=== PATIENT | female | born 1970 | race Hispanic/Latino ===

== ENCOUNTER 2017-11-17 18:10 | Emergency (ER) | payer SELFPAY ==
[~2017-11-17 18:10] MED LIST: ACET1TAB12 PO; ASPI81TA40 PO; FERR1TAB66 PO; TRAM50TA4 PO
[2017-11-17] MEDS ORDERED: MORPHINE SULFATE 4 MG/1ML SYG ONE (18:33)
[2017-11-17 18:37] LABS: BASOPHILS % (AUTO) 0.8 % (0.0-5.0); EOSINOPHILS % (AUTO) 3.3 % (0.0-8.0); HEMATOCRIT 36.8 % (36-48); LYMPHOCYTES % (AUTO) 17.9 % (21.0-51.0); MEAN CORPUSCULAR HGB CONC 33.4 g/dL (32.0-36.0); MEAN CORPUSCULAR VOLUME 86.7 fL (79-99); MONOCYTES % (AUTO) 6.6 % (3.0-13.0); NEUTROPHILS % (AUTO) 71.4 % (40.0-77.0); PLATELET COUNT (AUTO) 328 K/uL (130-400); RED BLOOD CELL COUNT(AUTO) 4.25 MIL/uL (4.00-5.50); RED CELL DISTRIBUTION WIDTH 13.4 % (11.0-15.5); WHITE BLOOD COUNT (AUTO) 9.6 K/uL (4.8-10.8)
[2017-11-17 18:47] LABS: CREATININE 0.7 mg/dL (0.5-1.5); POTASSIUM 3.7 mmol/L (3.5-5.1)
[2017-11-17 18:52] LABS: ALBUMIN 3.8 g/dL (3.5-5.0); BILIRUBIN,TOTAL 0.4 mg/dL (0.2-1.0); TOTAL PROTEIN, SERUM 8.3 g/dL (6.0-8.3)
[2017-11-17] MEDS ORDERED: IOPAMIDOL-370 75 ML VIAL IV ONE (20:05)
[2017-11-17] MEDS ORDERED: ONDANSETRON HCL MDV 20ML 2 MG/ML VIAL ONE ×2 (20:24)
[2017-11-17 20:42] LABS: APPEARANCE,URINE Cloudy (CLEAR); BILIRUBIN,URINE Negative (NEGATIVE); COLOR,URINE Yellow (YELLOW); GLUCOSE, URINE (UA) Negative (NEGATIVE); KETONES,URINE Negative (NEGATIVE); LEUKOCYTE ESTERASE ,URINE Trace (NEGATIVE); NITRATE,URINE Negative (NEGATIVE); OCCULT BLOOD,URINE Negative (NEGATIVE); PROTEIN,URINE Negative (NEGATIVE)
[2017-11-17 20:58] LABS: BACTERIA,URINE Rare /HPF (None Seen); MUCUS,URINE Few LPF (None Seen); RBC,URINE None Seen /HPF (0-1); WBC,URINE 0-1 /HPF (0-1)
== END 2017-11-17 21:45 | disposition home or self-care (01) ==
LOC: EDH 18:10
DX: R10.11 Right upper quadrant pain (principal); R16.0 Hepatomegaly, not elsewhere classified; Z98.890 Other specified postprocedural states; Z87.891 Personal history of nicotine dependence
CPT/HCPCS: 36415; 74177; 80053; 81001; 83690; 85025; 96374; 96375; 99285; J2270; Q9967

== ENCOUNTER 2017-12-16 22:12 | Inpatient (IN) | payer OTHER ==
[~2017-12-16] VITALS: Ht 157.5 cm; Wt 87.4 kg
[2017-12-16] MEDS ORDERED: ONDANSETRON HCL 4 MG/2 ML VIAL ONE (22:35)
[2017-12-16] MEDS ORDERED: SODIUM CHLORIDE 0.9% 1000ML 1,000 ML IV ONE (22:35)
[2017-12-16] MEDS ORDERED: KETOROLAC TROMETHAMINE 30MG/ML ONE (22:36)
[2017-12-16] MEDS ORDERED: HALOPERIDOL LACTATE 5 MG/ML VIAL ONE (22:53)
[2017-12-16 22:59] LABS: BASOPHILS % (AUTO) 0.6 % (0.0-5.0); EOSINOPHILS % (AUTO) 3.7 % (0.0-8.0); HEMATOCRIT 36.9 % (36-48); LYMPHOCYTES % (AUTO) 13.7 % (21.0-51.0); MEAN CORPUSCULAR HEMOGLOBIN 28.8 pg (27.0-33.0); MEAN CORPUSCULAR HGB CONC 34.1 g/dL (32.0-36.0); MEAN CORPUSCULAR VOLUME 84.4 fL (79-99); PLATELET COUNT (AUTO) 374 K/uL (130-400); RED BLOOD CELL COUNT(AUTO) 4.37 MIL/uL (4.00-5.50); RED CELL DISTRIBUTION WIDTH 13.7 % (11.0-15.5); WHITE BLOOD COUNT (AUTO) 8.7 K/uL (4.8-10.8)
[2017-12-16 23:06] LABS: APPEARANCE,URINE Cloudy (CLEAR); BILIRUBIN,URINE Negative (NEGATIVE); COLOR,URINE Yellow (YELLOW); GLUCOSE, URINE (UA) Negative (NEGATIVE); KETONES,URINE Trace mg/dL (NEGATIVE); LEUKOCYTE ESTERASE ,URINE Small (NEGATIVE); NITRATE,URINE Negative (NEGATIVE); OCCULT BLOOD,URINE Negative (NEGATIVE); PH,URINE 7.5 (5.0-8.0); PROTEIN,URINE Negative (NEGATIVE)
[2017-12-16 23:09] LABS: CREATININE 0.6 mg/dL (0.5-1.5); POTASSIUM 3.5 mmol/L (3.5-5.1)
[2017-12-16 23:12] LABS: RBC,URINE None Seen /HPF (0-1)
[2017-12-16 23:13] LABS: ALBUMIN 3.3 g/dL (3.5-5.0); BILIRUBIN,DIRECT 0.1 mg/dL (0.0-0.3); BILIRUBIN,TOTAL 0.3 mg/dL (0.2-1.0); TOTAL PROTEIN, SERUM 7.4 g/dL (6.0-8.3)
[2017-12-16 23:13] LABS: BACTERIA,URINE Few /HPF (None Seen); MUCUS,URINE Few LPF (None Seen); SQUAMOUS EPITHELIAL CELL,UR Few /HPF (0-2)
[2017-12-17 02:49] VITALS: BP 121/76
[2017-12-17] MEDS: SODIUM CHLORIDE 0.9% 1000ML 1,000 ML IV SCH ×3 (03:00→23:30)
[2017-12-17] MEDS ORDERED: ACETAMINOPHEN 325 MG TAB PO PRN (03:00)
[2017-12-17] MEDS ORDERED: ONDANSETRON HCL MDV 20ML 2 MG/ML VIAL IVP PRN (03:00)
[2017-12-17] MEDS: LEVOFLOXACIN 500 MG/D5W 100 ML 100 ML IV SCH (03:59)
[2017-12-17] MEDS ORDERED: MORPHINE SULFATE 2 MG/ML 1ML SYG IVP PRN (04:00)
[2017-12-17] MEDS: MORPHINE SULFATE 4 MG/1ML SYG IVP PRN ×5 (04:00→22:26)
[2017-12-17 05:40] LABS: HEMATOCRIT 33.8 % (36-48); MEAN CORPUSCULAR HEMOGLOBIN 28.7 pg (27.0-33.0); MEAN CORPUSCULAR HGB CONC 33.8 g/dL (32.0-36.0); MEAN CORPUSCULAR VOLUME 84.8 fL (79-99); PLATELET COUNT (AUTO) 314 K/uL (130-400); RED BLOOD CELL COUNT(AUTO) 3.98 MIL/uL (4.00-5.50); RED CELL DISTRIBUTION WIDTH 13.8 % (11.0-15.5); WHITE BLOOD COUNT (AUTO) 6.8 K/uL (4.8-10.8)
[2017-12-17 05:59] LABS: ALBUMIN 3.3 g/dL (3.5-5.0); BILIRUBIN,TOTAL 0.3 mg/dL (0.2-1.0); CREATININE 0.6 mg/dL (0.5-1.5); POTASSIUM 4.3 mmol/L (3.5-5.1); TOTAL PROTEIN, SERUM 7.6 g/dL (6.0-8.3)
[2017-12-17 07:40] VITALS: BP 127/73
[2017-12-17] MEDS ORDERED: PANTOPRAZOLE SODIUM 40 MG TABLET.DR PO SCH (09:00)
[2017-12-17] MEDS: FAMOTIDINE/PF 20 MG/2 ML VIAL IV SCH ×2 (10:11→20:40)
[2017-12-17] MEDS: ENOXAPARIN SODIUM 40 MG/0.4 ML SYRINGE SQ SCH (10:12)
[2017-12-17] MEDS ORDERED: MORPHINE SULFATE 4 MG/1ML SYG ONE (10:52)
[2017-12-17] MEDS ORDERED: MORPHINE SULFATE 2 MG/ML 1ML SYG IVP SCH (11:00)
[2017-12-17 11:33] VITALS: BP 125/76
[2017-12-17] MEDS ORDERED: ONDANSETRON HCL 4 MG/2 ML VIAL ONE (13:58)
[2017-12-17 16:00] VITALS: BP 116/61
[2017-12-17] MEDS: INSULIN HUMULIN R 100 UNIT/ML 3ML SQ SCH ×2 (16:30→21:00)
[2017-12-17 19:36] VITALS: BP 120/76
[2017-12-17 23:31] VITALS: BP 115/70
[2017-12-18] MEDS: LEVOFLOXACIN 500 MG/D5W 100 ML 100 ML IV SCH (02:37)
[2017-12-18 03:41] VITALS: BP 110/70
[2017-12-18] MEDS: MORPHINE SULFATE 4 MG/1ML SYG IVP PRN ×3 (04:23→23:31)
[2017-12-18 05:52] LABS: BASOPHILS % (AUTO) 0.6 % (0.0-5.0); EOSINOPHILS % (AUTO) 4.1 % (0.0-8.0); HEMATOCRIT 31.1 % (36-48); LYMPHOCYTES % (AUTO) 19.6 % (21.0-51.0); MEAN CORPUSCULAR HEMOGLOBIN 28.9 pg (27.0-33.0); MEAN CORPUSCULAR HGB CONC 33.9 g/dL (32.0-36.0); MEAN CORPUSCULAR VOLUME 85.4 fL (79-99); MONOCYTES % (AUTO) 8.4 % (3.0-13.0); NEUTROPHILS % (AUTO) 67.3 % (40.0-77.0); PLATELET COUNT (AUTO) 289 K/uL (130-400); RED BLOOD CELL COUNT(AUTO) 3.64 MIL/uL (4.00-5.50); RED CELL DISTRIBUTION WIDTH 13.6 % (11.0-15.5)
[2017-12-18] MEDS: INSULIN HUMULIN R 100 UNIT/ML 3ML SQ SCH ×2 (06:06→13:51)
[2017-12-18 06:07] LABS: CREATININE 0.6 mg/dL (0.5-1.5)
[2017-12-18 06:22] LABS: HEMOGLOBIN A1C 5.8 % (4.0-6.0)
[2017-12-18 07:55] VITALS: BP 119/70
[2017-12-18] MEDS: ENOXAPARIN SODIUM 40 MG/0.4 ML SYRINGE SQ SCH (08:15)
[2017-12-18] MEDS: FAMOTIDINE/PF 20 MG/2 ML VIAL IV SCH ×2 (08:15→21:11)
[2017-12-18] MEDS: SODIUM CHLORIDE 0.9% 1000ML 1,000 ML IV SCH ×2 (08:16→11:48)
[2017-12-18 12:28] VITALS: BP 124/83
[2017-12-18 16:00] VITALS: BP 128/70
[2017-12-18 20:43] VITALS: BP 143/65
[2017-12-19] VITALS: BP 123/76
[2017-12-19] MEDS ORDERED: GLUCAGON 1MG KIT 1 MG ML IM PRN (00:15)
[2017-12-19] MEDS: DEXTROSE 50%-WATER 50 ML DISP.SYRIN IV PRN ×3 (00:23→16:54)
[2017-12-19 04:00] VITALS: BP 121/75
[2017-12-19] MEDS: LEVOFLOXACIN 500 MG/D5W 100 ML 100 ML IV SCH (05:11)
[2017-12-19] MEDS: SODIUM CHLORIDE 0.9% 1000ML 1,000 ML IV SCH ×2 (05:12→14:36)
[2017-12-19] MEDS: INSULIN HUMULIN R 100 UNIT/ML 3ML SQ SCH ×4 (06:00→16:39)
[2017-12-19 06:14] LABS: BASOPHILS % (AUTO) 0.7 % (0.0-5.0); EOSINOPHILS % (AUTO) 6.2 % (0.0-8.0); LYMPHOCYTES % (AUTO) 22.7 % (21.0-51.0); MEAN CORPUSCULAR HGB CONC 35.8 g/dL (32.0-36.0); MEAN CORPUSCULAR VOLUME 83.9 fL (79-99); MONOCYTES % (AUTO) 8.7 % (3.0-13.0); NEUTROPHILS % (AUTO) 61.7 % (40.0-77.0); NUCLEATED RED BLOOD CELLS 0.1 % (0.0-0.19); PLATELET COUNT (AUTO) 286 K/uL (130-400); RED BLOOD CELL COUNT(AUTO) 3.58 MIL/uL (4.00-5.50); RED CELL DISTRIBUTION WIDTH 13.4 % (11.0-15.5); WHITE BLOOD COUNT (AUTO) 5.1 K/uL (4.8-10.8)
[2017-12-19 06:20] LABS: CREATININE 0.5 mg/dL (0.5-1.5); MAGNESIUM 1.9 mg/dL (1.80-2.40); POTASSIUM 3.8 mmol/L (3.5-5.1)
[2017-12-19] MEDS: ENOXAPARIN SODIUM 40 MG/0.4 ML SYRINGE SQ SCH (08:06)
[2017-12-19] MEDS: FAMOTIDINE/PF 20 MG/2 ML VIAL IV SCH ×2 (08:06→20:32)
[2017-12-19 08:21] VITALS: BP 129/76
[2017-12-19 12:00] VITALS: BP 146/83
[2017-12-19 16:00] VITALS: BP 126/73
[2017-12-19 19:00] VITALS: BP 132/91
[2017-12-19] MEDS: MORPHINE SULFATE 4 MG/1ML SYG IVP PRN (22:41)
[2017-12-20] VITALS (7 sets, daily range): BP systolic 107–155; BP diastolic 67–81
[2017-12-20] MEDS: LEVOFLOXACIN 500 MG/D5W 100 ML 100 ML IV SCH (03:33)
[2017-12-20] MEDS: SODIUM CHLORIDE 0.9% 1000ML 1,000 ML IV SCH ×3 (03:34→20:34)
[2017-12-20 05:30] LABS: BASOPHILS % (AUTO) 0.8 % (0.0-5.0); EOSINOPHILS % (AUTO) 6.1 % (0.0-8.0); HEMATOCRIT 34.9 % (36-48); LYMPHOCYTES % (AUTO) 24.6 % (21.0-51.0); MEAN CORPUSCULAR HEMOGLOBIN 28.5 pg (27.0-33.0); MEAN CORPUSCULAR HGB CONC 33.7 g/dL (32.0-36.0); MEAN CORPUSCULAR VOLUME 84.7 fL (79-99); MONOCYTES % (AUTO) 9.3 % (3.0-13.0); NEUTROPHILS % (AUTO) 59.2 % (40.0-77.0); PLATELET COUNT (AUTO) 345 K/uL (130-400); RED BLOOD CELL COUNT(AUTO) 4.12 MIL/uL (4.00-5.50); RED CELL DISTRIBUTION WIDTH 13.9 % (11.0-15.5); WHITE BLOOD COUNT (AUTO) 5.8 K/uL (4.8-10.8)
[2017-12-20 05:38] LABS: CREATININE 0.6 mg/dL (0.5-1.5); POTASSIUM 3.9 mmol/L (3.5-5.1)
[2017-12-20] MEDS: INSULIN HUMULIN R 100 UNIT/ML 3ML SQ SCH ×5 (05:50→23:49)
[2017-12-20] MEDS: FAMOTIDINE/PF 20 MG/2 ML VIAL IV SCH ×2 (09:06→20:34)
[2017-12-20] MEDS: ENOXAPARIN SODIUM 40 MG/0.4 ML SYRINGE SQ SCH (09:06)
[2017-12-21] MEDS: MORPHINE SULFATE 4 MG/1ML SYG IVP PRN (00:27)
[2017-12-21] MEDS: LEVOFLOXACIN 500 MG/D5W 100 ML 100 ML IV SCH (02:37)
[2017-12-21 04:00] VITALS: BP 138/67
[2017-12-21 05:16] LABS: BASOPHILS % (AUTO) 0.7 % (0.0-5.0); EOSINOPHILS % (AUTO) 7.7 % (0.0-8.0); HEMATOCRIT 31.8 % (36-48); LYMPHOCYTES % (AUTO) 29.1 % (21.0-51.0); MEAN CORPUSCULAR HEMOGLOBIN 29.8 pg (27.0-33.0); MEAN CORPUSCULAR HGB CONC 35.5 g/dL (32.0-36.0); MEAN CORPUSCULAR VOLUME 83.9 fL (79-99); MONOCYTES % (AUTO) 9.3 % (3.0-13.0); NEUTROPHILS % (AUTO) 53.2 % (40.0-77.0); PLATELET COUNT (AUTO) 287 K/uL (130-400); RED BLOOD CELL COUNT(AUTO) 3.79 MIL/uL (4.00-5.50); RED CELL DISTRIBUTION WIDTH 13.4 % (11.0-15.5); WHITE BLOOD COUNT (AUTO) 4.9 K/uL (4.8-10.8)
[2017-12-21 05:42] LABS: CREATININE 0.5 mg/dL (0.5-1.5); POTASSIUM 3.4 mmol/L (3.5-5.1)
[2017-12-21] MEDS: INSULIN HUMULIN R 100 UNIT/ML 3ML SQ SCH ×2 (06:00→12:00)
[2017-12-21] MEDS: SODIUM CHLORIDE 0.9% 1000ML 1,000 ML IV SCH (07:00)
[2017-12-21 08:00] VITALS: BP 97/65
[2017-12-21] MEDS: FAMOTIDINE/PF 20 MG/2 ML VIAL IV SCH (09:59)
[2017-12-21] MEDS: ENOXAPARIN SODIUM 40 MG/0.4 ML SYRINGE SQ SCH (10:00)
[2017-12-21 11:00] VITALS: BP 119/71
[2017-12-21 16:00] VITALS: BP 114/72
== END 2017-12-21 17:00 | disposition home or self-care (01) | DRG 389 ==
LOC: EDH 22:12 → EDHIP 22:13 → UNDOADMIN 12-17 01:30 → EDHIP 12-17 01:30 → 3CH 12-17 02:24 → EDHIP 12-17 02:24
PROVIDERS: ADMIT Family Medicine; ATTEND Family Medicine
PROC: 0D9670Z Drainage of Stomach with Drainage Device, Via Natural or Artificial Opening (ICD-10-PCS; principal; 2017-12-16)
DX: K56.609 Unspecified intestinal obstruction, unspecified as to partial versus complete obstruction (principal); N39.0 Urinary tract infection, site not specified; E66.9 Obesity, unspecified; D64.9 Anemia, unspecified; K43.5 Parastomal hernia without obstruction or gangrene; Z85.038 Personal history of other malignant neoplasm of large intestine; Z93.3 Colostomy status; Z92.21 Personal history of antineoplastic chemotherapy; Z90.710 Acquired absence of both cervix and uterus; Z90.49 Acquired absence of other specified parts of digestive tract; Z68.35 Body mass index [BMI] 35.0-35.9, adult
CPT/HCPCS: 36415; 74021; 74176; 80048; 80053; 80076; 81001; 82948; 83036; 83690; 83735; 84703; 85025; 85027; C9113; J1630; J1650; J1885; J1956; J2270; J2405; J3490; J7030; J7070

== ENCOUNTER 2018-04-06 16:17 | Emergency (ER) | payer OTHER ==
[2018-04-06] MEDS ORDERED: SODIUM CHLORIDE 0.9% 1000ML 1,000 ML IV ONE ×2 (17:05→18:31)
[2018-04-06 17:07] LABS: BASOPHILS % (AUTO) 0.8 % (0.0-5.0); EOSINOPHILS % (AUTO) 2.8 % (0.0-8.0); HEMATOCRIT 33.7 % (36-48); LYMPHOCYTES % (AUTO) 22.4 % (21.0-51.0); MEAN CORPUSCULAR HEMOGLOBIN 26.2 pg (27.0-33.0); MEAN CORPUSCULAR VOLUME 79.3 fL (79-99); MONOCYTES % (AUTO) 7.7 % (3.0-13.0); NEUTROPHILS % (AUTO) 66.3 % (40.0-77.0); PLATELET COUNT (AUTO) 352 K/uL (130-400); RED BLOOD CELL COUNT(AUTO) 4.24 MIL/uL (4.00-5.50); RED CELL DISTRIBUTION WIDTH 16.2 % (11.0-15.5); WHITE BLOOD COUNT (AUTO) 5.6 K/uL (4.8-10.8)
[2018-04-06 17:20] LABS: CREATININE 0.5 mg/dL (0.5-1.5); POTASSIUM 3.5 mmol/L (3.5-5.1)
[2018-04-06 17:23] LABS: INR 0.98 (0.85-1.15); PARTIAL THROMBOPLASTIN TIME 31.3 SEC (26.3-35.5); PROTHROMBIN TIME 10.3 SEC (9.6-11.6)
[2018-04-06 17:24] LABS: ALBUMIN 3.4 g/dL (3.5-5.0); BILIRUBIN,TOTAL 0.6 mg/dL (0.2-1.0); TOTAL PROTEIN, SERUM 8.1 g/dL (6.0-8.3)
[2018-04-06 18:10] LABS: APPEARANCE,URINE SLIGHTLY CLOUDY (CLEAR); BILIRUBIN,URINE Negative (NEGATIVE); COLOR,URINE Yellow (YELLOW); GLUCOSE, URINE (UA) Negative (NEGATIVE); KETONES,URINE 40 mg/dL (NEGATIVE); LEUKOCYTE ESTERASE ,URINE Trace (NEGATIVE); NITRATE,URINE Negative (NEGATIVE); OCCULT BLOOD,URINE Negative (NEGATIVE); PH,URINE 5.5 (5.0-8.0); PROTEIN,URINE Negative (NEGATIVE); UROBILINOGEN,URINE 0.2 mg/dL (0.2-1.0)
[2018-04-06 18:18] LABS: BACTERIA,URINE Rare /HPF (None Seen); RBC,URINE 0-1 /HPF (0-1); SQUAMOUS EPITHELIAL CELL,UR Rare /HPF (0-2)
[2018-04-06] MEDS ORDERED: KETOROLAC TROMETHAMINE 30MG/ML ONE (18:32)
== END 2018-04-06 19:51 | disposition home or self-care (01) ==
LOC: EDH 16:17
DX: C18.9 Malignant neoplasm of colon, unspecified (principal); C78.7 Secondary malignant neoplasm of liver and intrahepatic bile duct; R10.13 Epigastric pain
CPT/HCPCS: 36415; 74021; 80053; 81001; 83690; 85025; 85610; 85730; 96374; 96375; 99285; J1885; J7030 ×2

== ENCOUNTER 2018-06-17 06:09 | Emergency (ER) | payer OTHER ==
[2018-06-17 06:48] LABS: APPEARANCE,URINE Clear (CLEAR); BILIRUBIN,URINE Negative (NEGATIVE); COLOR,URINE Yellow (YELLOW); GLUCOSE, URINE (UA) Negative (NEGATIVE); KETONES,URINE Negative (NEGATIVE); LEUKOCYTE ESTERASE ,URINE Trace (NEGATIVE); NITRATE,URINE Negative (NEGATIVE); OCCULT BLOOD,URINE Negative (NEGATIVE); PH,URINE 6.5 (5.0-8.0); PROTEIN,URINE Negative (NEGATIVE)
[2018-06-17 06:48] LABS: BASOPHILS % (AUTO) 0.4 % (0.0-5.0); EOSINOPHILS % (AUTO) 1.1 % (0.0-8.0); LYMPHOCYTES % (AUTO) 7.1 % (21.0-51.0); MEAN CORPUSCULAR HEMOGLOBIN 24.2 pg (27.0-33.0); MEAN CORPUSCULAR HGB CONC 30.8 g/dL (32.0-36.0); MEAN CORPUSCULAR VOLUME 78.7 fL (79-99); MONOCYTES % (AUTO) 4.2 % (3.0-13.0); NEUTROPHILS % (AUTO) 87.2 % (40.0-77.0); PLATELET COUNT (AUTO) 414 K/uL (130-400); RED BLOOD CELL COUNT(AUTO) 3.43 MIL/uL (4.00-5.50); RED CELL DISTRIBUTION WIDTH 22.3 % (11.0-15.5); WHITE BLOOD COUNT (AUTO) 5.8 K/uL (4.8-10.8)
[2018-06-17] MEDS ORDERED: ONDANSETRON HCL 4 MG/2 ML VIAL ONE (06:52)
[2018-06-17 07:03] LABS: MUCUS,URINE Few LPF (None Seen); SQUAMOUS EPITHELIAL CELL,UR Few /HPF (0-2)
[2018-06-17 07:04] LABS: BACTERIA,URINE Few /HPF (None Seen); RBC,URINE None Seen /HPF (0-1); WBC,URINE 0-1 /HPF (0-1)
[2018-06-17 07:18] LABS: CREATININE 0.6 mg/dL (0.5-1.5); POTASSIUM 3.8 mmol/L (3.5-5.1)
[2018-06-17 07:19] LABS: ALBUMIN 3.2 g/dL (3.5-5.0); BILIRUBIN,TOTAL 0.3 mg/dL (0.2-1.0); TOTAL PROTEIN, SERUM 7.8 g/dL (6.0-8.3)
[2018-06-17] MEDS ORDERED: SODIUM CHLORIDE 0.9% 1000ML 1,000 ML IV ONE (07:41)
[2018-06-17] MEDS ORDERED: FAMOTIDINE/PF 20 MG/2 ML VIAL IV ONE (07:42)
[2018-06-17] MEDS ORDERED: IOHEXOL-350 75 ML VIAL IV ONE (07:45)
[2018-06-17] MEDS ORDERED: LACTULOSE 20 GM/30 ML UDCUP ONE (09:45)
== END 2018-06-17 10:43 | disposition home or self-care (01) ==
LOC: EDH 06:09
DX: K59.00 Constipation, unspecified (principal); Z85.038 Personal history of other malignant neoplasm of large intestine; Z85.05 Personal history of malignant neoplasm of liver; Z87.891 Personal history of nicotine dependence
CPT/HCPCS: 36415; 74177; 80053; 81001; 85025; 96361; 96374; 96375; 99284; J2405; J3490; J7030; Q9967

== ENCOUNTER 2018-07-13 00:17 | Inpatient (IN) | payer OTHER ==
[~2018-07-13] VITALS: Ht 157.5 cm; Wt 75.2 kg
[2018-07-13] MEDS ORDERED: LIDOCAINE HCL 2% VISCOUS 15 ML UDCUP ONE (00:55)
[2018-07-13] MEDS ORDERED: MAG HYDROX/AL HYDROX/SIMETH ES 30 ML SUSP UDCUP ONE (00:55)
[2018-07-13] MEDS ORDERED: ONDANSETRON HCL 4 MG/2 ML VIAL ONE ×2 (00:55→09:23)
[2018-07-13] MEDS ORDERED: SODIUM CHLORIDE 0.9% 1000ML 1,000 ML IV ONE (00:55)
[2018-07-13] MEDS ORDERED: MORPHINE SULFATE 4 MG/1ML SYG ONE ×2 (00:56→15:26)
[2018-07-13 00:58] LABS: BASOPHILS % (AUTO) 0.3 % (0.0-5.0); EOSINOPHILS % (AUTO) 1.3 % (0.0-8.0); HEMATOCRIT 24.3 % (36-48); LYMPHOCYTES % (AUTO) 10.5 % (21.0-51.0); MEAN CORPUSCULAR HEMOGLOBIN 24.9 pg (27.0-33.0); MEAN CORPUSCULAR HGB CONC 32.6 g/dL (32.0-36.0); MEAN CORPUSCULAR VOLUME 76.5 fL (79-99); MONOCYTES % (AUTO) 4.2 % (3.0-13.0); NEUTROPHILS % (AUTO) 83.7 % (40.0-77.0); NUCLEATED RED BLOOD CELLS 0.1 % (0.0-0.19); PLATELET COUNT (AUTO) 538 K/uL (130-400); RED BLOOD CELL COUNT(AUTO) 3.18 MIL/uL (4.00-5.50); RED CELL DISTRIBUTION WIDTH 22.4 % (11.0-15.5); WHITE BLOOD COUNT (AUTO) 8.4 K/uL (4.8-10.8)
[2018-07-13 00:58] LABS: APPEARANCE,URINE Clear (CLEAR); BILIRUBIN,URINE Negative (NEGATIVE); COLOR,URINE Yellow (YELLOW); GLUCOSE, URINE (UA) Negative (NEGATIVE); KETONES,URINE Negative (NEGATIVE); LEUKOCYTE ESTERASE ,URINE Trace (NEGATIVE); NITRATE,URINE Negative (NEGATIVE); OCCULT BLOOD,URINE Negative (NEGATIVE); PROTEIN,URINE Negative (NEGATIVE)
[2018-07-13 01:05] LABS: CREATININE 0.4 mg/dL (0.5-1.5)
[2018-07-13 01:06] LABS: BACTERIA,URINE None Seen /HPF (None Seen); RBC,URINE None Seen /HPF (0-1); SQUAMOUS EPITHELIAL CELL,UR Few /HPF (0-2)
[2018-07-13 01:10] LABS: ALBUMIN 2.6 g/dL (3.5-5.0); BILIRUBIN,TOTAL 0.5 mg/dL (0.2-1.0); TOTAL PROTEIN, SERUM 7.7 g/dL (6.0-8.3)
[2018-07-13] MEDS: SODIUM CHLORIDE 0.9% 1000ML 1,000 ML IV SCH ×3 (02:50→23:04)
[2018-07-13] MEDS: TRAMADOL HCL 50 MG TABLET PO SCH ×5 (03:00→23:01)
[2018-07-13] MEDS ORDERED: ACETAMINOPHEN 325 MG TAB PO PRN (03:00)
[2018-07-13] MEDS ORDERED: MORPHINE SULFATE 2 MG/ML 1ML SYG IV PRN (03:00)
[2018-07-13] MEDS: VITRON C PO SCH ×2 (08:00→17:00)
[2018-07-13] MEDS: ENOXAPARIN SODIUM 30 MG/0.3 ML SQ SCH ×2 (09:00→21:41)
[2018-07-13] MEDS: FAMOTIDINE/PF 20 MG/2 ML VIAL IV SCH ×2 (09:00→21:40)
[2018-07-13] MEDS ORDERED: FAMOTIDINE/PF 20 MG/2 ML VIAL IV ONE (11:36)
[2018-07-13] MEDS ORDERED: ENOXAPARIN SODIUM 30 MG/0.3 ML SQ ONE (11:36)
[2018-07-13 14:11] VITALS: BP 128/88
[2018-07-13] MEDS ORDERED: FAMO20TA8 PO (15:22)
[2018-07-13] MEDS ORDERED: DOCU100C33 PO (15:22)
[2018-07-13] MEDS ORDERED: TRIF1TAB PO (15:22)
[2018-07-13] MEDS ORDERED: MORPHINE SULFATE 4 MG/1ML SYG IVP PRN (16:00)
[2018-07-13 16:56] VITALS: BP 106/66
[2018-07-13 19:48] VITALS: BP 108/65
[2018-07-13 23:33] VITALS: BP 119/75
[2018-07-14] MEDS: MORPHINE SULFATE 4 MG/1ML SYG IV PRN ×2 (01:23→22:13)
[2018-07-14 04:00] VITALS: BP 102/67
[2018-07-14 05:34] LABS: MEAN CORPUSCULAR HEMOGLOBIN 24.3 pg (27.0-33.0); MEAN CORPUSCULAR HGB CONC 31.5 g/dL (32.0-36.0); MEAN CORPUSCULAR VOLUME 76.9 fL (79-99); NUCLEATED RED BLOOD CELLS 0.1 % (0.0-0.19); PLATELET COUNT (AUTO) 457 K/uL (130-400); RED CELL DISTRIBUTION WIDTH 22.5 % (11.0-15.5); WHITE BLOOD COUNT (AUTO) 4.7 K/uL (4.8-10.8)
[2018-07-14 05:42] LABS: HEMATOCRIT 20.8 % (36-48)
[2018-07-14 05:47] LABS: ALBUMIN 2.3 g/dL (3.5-5.0); BILIRUBIN,TOTAL 0.5 mg/dL (0.2-1.0); CREATININE 0.4 mg/dL (0.5-1.5); MAGNESIUM 1.9 mg/dL (1.80-2.40); PHOSPHORUS 4.1 mg/dL (2.5-4.9); TOTAL PROTEIN, SERUM 6.4 g/dL (6.0-8.3)
[2018-07-14 07:16] LABS: HEMATOCRIT 20.7 % (36-48)
[2018-07-14 07:23] VITALS: BP 103/65
[2018-07-14] MEDS: VITRON C PO SCH ×2 (08:00→17:00)
[2018-07-14] MEDS: ENOXAPARIN SODIUM 30 MG/0.3 ML SQ SCH (09:00)
[2018-07-14] MEDS: TRAMADOL HCL 50 MG TABLET PO SCH ×3 (09:00→20:28)
[2018-07-14] MEDS: SODIUM CHLORIDE 0.9% 1000ML 1,000 ML IV SCH ×2 (09:55→20:28)
[2018-07-14] MEDS: FAMOTIDINE/PF 20 MG/2 ML VIAL IV SCH ×2 (09:56→20:27)
[2018-07-14] MEDS ORDERED: SODIUM CHLORIDE 0.9% 250 ML IV ONE (09:58)
--- NOTE | 2018-07-14 10:50 | NUR ---
PATIENT H/H/ 6.4/20.7 , ORDERED RECEIVED TO INFUSE 2 UNITS OF RBC . PRE VITALS TAKEN AND BLOOD PLACED IN BLOOD WARMER AND FIRST UNIT STARTED AT 1030
[2018-07-14 11:44] VITALS: BP 103/62
[2018-07-14] MEDS ORDERED: DOCUSATE SODIUM 100 MG CAP PO PRN (13:00)
--- NOTE | 2018-07-14 13:29 | NUR ---
DC PLAN VISITED WITH PATIENT. PATIENT LIVES WITH SPOUSE. INDEPENDENT ABLE TO PERFORM ADL'S. PATIENT HAS NO SERVICES OR DME'S. FEELS SAFE TO RETURN HOME. Addendum: 07/14/18 at 1331 by JANNIE PRICE RN CM Amended: Links added.
[2018-07-14 16:25] VITALS: BP 112/66
[2018-07-14 19:26] LABS: HEMATOCRIT 28.9 % (36-48)
[2018-07-14 19:55] VITALS: BP 109/57
[2018-07-14 23:28] VITALS: BP 106/61
[2018-07-15] MEDS: TRAMADOL HCL 50 MG TABLET PO SCH ×4 (02:42→19:42)
[2018-07-15 04:28] VITALS: BP 119/72
[2018-07-15 05:58] LABS: HEMATOCRIT 26.8 % (36-48); MEAN CORPUSCULAR HEMOGLOBIN 26.3 pg (27.0-33.0); MEAN CORPUSCULAR HGB CONC 33.3 g/dL (32.0-36.0); NUCLEATED RED BLOOD CELLS 0.1 % (0.0-0.19); PLATELET COUNT (AUTO) 431 K/uL (130-400); RED BLOOD CELL COUNT(AUTO) 3.39 MIL/uL (4.00-5.50); RED CELL DISTRIBUTION WIDTH 22.3 % (11.0-15.5); WHITE BLOOD COUNT (AUTO) 6.6 K/uL (4.8-10.8)
[2018-07-15 06:41] LABS: ALBUMIN 2.4 g/dL (3.5-5.0); CREATININE 0.5 mg/dL (0.5-1.5); POTASSIUM 3.8 mmol/L (3.5-5.1); TOTAL PROTEIN, SERUM 6.7 g/dL (6.0-8.3)
[2018-07-15] MEDS: VITRON C PO SCH ×2 (08:00→17:00)
[2018-07-15] MEDS: LONSURF PO SCH ×2 (08:38→19:42)
[2018-07-15] MEDS: FAMOTIDINE/PF 20 MG/2 ML VIAL IV SCH ×2 (08:41→20:35)
[2018-07-15] MEDS: ENOXAPARIN SODIUM 30 MG/0.3 ML SQ SCH (08:43)
[2018-07-15 09:16] VITALS: BP 120/59
[2018-07-15] MEDS: MORPHINE SULFATE 4 MG/1ML SYG IV PRN ×2 (11:04→17:11)
[2018-07-15 11:52] VITALS: BP 112/81
[2018-07-15] MEDS: SODIUM CHLORIDE 0.9% 1000ML 1,000 ML IV SCH ×2 (13:08→20:35)
[2018-07-15 16:34] VITALS: BP 123/76
[2018-07-15 20:24] VITALS: BP 120/69
[2018-07-15 23:37] VITALS: BP 139/66
[2018-07-16] MEDS: MORPHINE SULFATE 4 MG/1ML SYG IV PRN ×3 (00:27→23:55)
[2018-07-16] MEDS: TRAMADOL HCL 50 MG TABLET PO SCH ×4 (00:28→20:27)
[2018-07-16 04:19] VITALS: BP 103/63
[2018-07-16 06:38] LABS: HEMATOCRIT 27.4 % (36-48); MEAN CORPUSCULAR HEMOGLOBIN 25.9 pg (27.0-33.0); MEAN CORPUSCULAR HGB CONC 32.9 g/dL (32.0-36.0); MEAN CORPUSCULAR VOLUME 78.6 fL (79-99); NUCLEATED RED BLOOD CELLS 0.1 % (0.0-0.19); PLATELET COUNT (AUTO) 400 K/uL (130-400); RED BLOOD CELL COUNT(AUTO) 3.49 MIL/uL (4.00-5.50); RED CELL DISTRIBUTION WIDTH 22.5 % (11.0-15.5); WHITE BLOOD COUNT (AUTO) 6.8 K/uL (4.8-10.8)
[2018-07-16 06:50] LABS: CREATININE 0.5 mg/dL (0.5-1.5)
[2018-07-16 07:00] VITALS: BP 95/55
[2018-07-16] MEDS: VITRON C PO SCH ×2 (08:00→16:34)
[2018-07-16] MEDS: LONSURF PO SCH ×2 (09:00→20:26)
[2018-07-16] MEDS: FAMOTIDINE/PF 20 MG/2 ML VIAL IV SCH ×2 (09:43→21:14)
[2018-07-16] MEDS: ENOXAPARIN SODIUM 30 MG/0.3 ML SQ SCH (09:45)
[2018-07-16 11:00] VITALS: BP 125/77
[2018-07-16 16:00] VITALS: BP 117/66
[2018-07-16] MEDS ORDERED: MAGNESIUM HYDROXIDE 30 ML/UDCUP PO SCH (17:00)
[2018-07-16] MEDS ORDERED: MAGNESIUM CITRATE 296 ML SOLUTION PO SCH (17:00)
[2018-07-16] MEDS: ONDANSETRON HCL 4 MG/2 ML VIAL IV PRN (17:19)
[2018-07-16 19:00] VITALS: BP 117/70
[2018-07-16] MEDS: DOCUSATE SODIUM 100 MG CAP PO SCH (21:14)
[2018-07-17] VITALS: BP 115/72
[2018-07-17] MEDS: TRAMADOL HCL 50 MG TABLET PO SCH ×4 (03:00→21:00)
[2018-07-17 04:00] VITALS: BP 112/73
[2018-07-17 05:14] LABS: MEAN CORPUSCULAR HEMOGLOBIN 26.3 pg (27.0-33.0); MEAN CORPUSCULAR HGB CONC 32.8 g/dL (32.0-36.0); PLATELET COUNT (AUTO) 424 K/uL (130-400); RED CELL DISTRIBUTION WIDTH 22.4 % (11.0-15.5); WHITE BLOOD COUNT (AUTO) 5.9 K/uL (4.8-10.8)
[2018-07-17 05:31] LABS: CREATININE 0.5 mg/dL (0.5-1.5); MAGNESIUM 2.3 mg/dL (1.80-2.40); PHOSPHORUS 3.6 mg/dL (2.5-4.9); POTASSIUM 3.7 mmol/L (3.5-5.1)
[2018-07-17] MEDS: FAMOTIDINE/PF 20 MG/2 ML VIAL IV SCH ×2 (07:47→21:21)
[2018-07-17] MEDS: DOCUSATE SODIUM 100 MG CAP PO SCH ×2 (07:47→21:21)
[2018-07-17] MEDS: MORPHINE SULFATE 4 MG/1ML SYG IV PRN ×2 (07:47→21:21)
[2018-07-17] MEDS: POLYETHYLENE GLYCOL 3350 17 GM POWD.PACK PO SCH (07:48)
[2018-07-17] MEDS: VITRON C PO SCH ×2 (07:48→16:21)
[2018-07-17] MEDS: LONSURF PO SCH ×2 (07:48→21:00)
[2018-07-17] MEDS: ENOXAPARIN SODIUM 30 MG/0.3 ML SQ SCH (07:48)
[2018-07-17 08:00] VITALS: BP 105/68
[2018-07-17 12:00] VITALS: BP 108/68
[2018-07-17 16:00] VITALS: BP 106/64
[2018-07-17 20:00] VITALS: BP_SYST 128; BP_SYST 162; BP_DIAS 75; BP_DIAS 79
[2018-07-18 00:07] VITALS: BP 120/63
[2018-07-18] MEDS: TRAMADOL HCL 50 MG TABLET PO SCH ×3 (03:00→15:59)
[2018-07-18] MEDS: MORPHINE SULFATE 4 MG/1ML SYG IV PRN ×3 (03:43→18:57)
[2018-07-18] MEDS: ONDANSETRON HCL 4 MG/2 ML VIAL IV PRN ×2 (03:43→18:57)
[2018-07-18 04:00] VITALS: BP 107/75
[2018-07-18] MEDS: VITRON C PO SCH ×2 (08:00→17:00)
[2018-07-18] MEDS: LONSURF PO SCH (09:00)
[2018-07-18 09:07] VITALS: BP 99/66
[2018-07-18] MEDS: FAMOTIDINE/PF 20 MG/2 ML VIAL IV SCH (09:13)
[2018-07-18] MEDS: DOCUSATE SODIUM 100 MG CAP PO SCH (09:13)
[2018-07-18] MEDS: POLYETHYLENE GLYCOL 3350 17 GM POWD.PACK PO SCH (09:13)
[2018-07-18] MEDS: ENOXAPARIN SODIUM 30 MG/0.3 ML SQ SCH (09:15)
--- NOTE | 2018-07-18 11:50 | NUR ---
HOSPICE Sw met with pt who states Dr Sanchez spoke to her about hospice. Pt states Dr Nguyen is her oncologist and she has appt with him on 07/26 to discuss results. Pt states that she wants to hear it from Dr Nguyen and if he says he can not treat cancer, she will look for another. Pt states she is not ready to stop treating cancer or hospice. CM Aware
[2018-07-18 12:33] VITALS: BP 123/76
--- NOTE | 2018-07-18 14:28 | NUR ---
DR. LEONG CALLED REGARDING PATIENT'S D/C INSTRUCTIONS. PATIENT OK TO GO HOME PER DR. LEONG.
[2018-07-18 16:21] VITALS: BP 115/65
--- NOTE | 2018-07-18 19:36 | NUR ---
DISCHARGE INSTRUCTIONS GIVEN TO PATIENT. PATIENT VERBALIZED UNDERSTANDING OF ALL EDUCATION GIVEN VIA TEACH BACK. ON FOLLOW UP APPOINTMENTS AND STOPPED AND CONTINUED MEDICATIONS. IV DISCONTINUED, CATHETER INTACT. PATIENT WAITING FOR HER RIDE TO GO HOME.
== END 2018-07-18 21:30 | disposition home or self-care (01) | DRG 394 ==
LOC: EDH 00:17 → EDHIP 00:18 → OBSVTOIN 00:18 → 3BH 14:07
PROVIDERS: ADMIT Internal Medicine; ATTEND Internal Medicine
PROC: 30233N1 Transfusion of Nonautologous Red Blood Cells into Peripheral Vein, Percutaneous Approach (ICD-10-PCS; principal; 2018-07-14)
DX: K43.3 Parastomal hernia with obstruction, without gangrene (principal); E87.1 Hypo-osmolality and hyponatremia; N17.9 Acute kidney failure, unspecified; C18.9 Malignant neoplasm of colon, unspecified; C78.7 Secondary malignant neoplasm of liver and intrahepatic bile duct; D64.9 Anemia, unspecified; E86.1 Hypovolemia; Z80.49 Family history of malignant neoplasm of other genital organs; Z82.0 Family history of epilepsy and other diseases of the nervous system; Z82.3 Family history of stroke; Z82.49 Family history of ischemic heart disease and other diseases of the circulatory system; Z82.5 Family history of asthma and other chronic lower respiratory diseases; Z83.3 Family history of diabetes mellitus; Z90.49 Acquired absence of other specified parts of digestive tract; Z93.3 Colostomy status; Z93.2 Ileostomy status
CPT/HCPCS: 36415; 36430; 74018; 74177; 80048; 80053; 81001; 83690; 83735; 84100; 84484; 85014; 85018; 85025; 85027; 86156; 86850; 86870; 86900; 86901; 86922; 93005; G0378; J1650; J2270; J2405; J3490; J7030; P9016

== ENCOUNTER 2018-08-24 20:49 | Inpatient (IN) | payer OTHER ==
[~2018-08-24] VITALS: Ht 154.9 cm; Wt 71.2 kg
[~2018-08-24 20:49] MED LIST changes: -ASPI81TA40 PO; +DOCU100C33 PO; +FAMO20TA8 PO; -FERR1TAB66 PO; -TRAM50TA4 PO
[2018-08-24] MEDS ORDERED: ONDANSETRON HCL 4 MG/2 ML VIAL ONE (21:59)
[2018-08-24] MEDS ORDERED: SODIUM CHLORIDE 0.9% 1000ML 1,000 ML IV ONE (21:59)
[2018-08-24] MEDS ORDERED: MORPHINE SULFATE 4 MG/1ML SYG ONE (21:59)
[2018-08-24 22:07] LABS: BASOPHILS % (AUTO) 1.1 % (0.0-5.0); EOSINOPHILS % (AUTO) 0.4 % (0.0-8.0); HEMATOCRIT 26.6 % (36-48); LYMPHOCYTES % (AUTO) 12.3 % (21.0-51.0); MEAN CORPUSCULAR HEMOGLOBIN 27.2 pg (27.0-33.0); MEAN CORPUSCULAR HGB CONC 32.1 g/dL (32.0-36.0); MEAN CORPUSCULAR VOLUME 84.9 fL (79-99); MONOCYTES % (AUTO) 10.2 % (3.0-13.0); NUCLEATED RED BLOOD CELLS 0.1 % (0.0-0.19); PLATELET COUNT (AUTO) 390 K/uL (130-400); RED BLOOD CELL COUNT(AUTO) 3.14 MIL/uL (4.00-5.50); RED CELL DISTRIBUTION WIDTH 26.4 % (11.0-15.5)
[2018-08-24 22:28] LABS: CREATININE 0.5 mg/dL (0.5-1.5); POTASSIUM 4.2 mmol/L (3.5-5.1)
[2018-08-24 22:32] LABS: ALBUMIN 2.6 g/dL (3.5-5.0); TOTAL PROTEIN, SERUM 7.5 g/dL (6.0-8.3)
[2018-08-24] MEDS ORDERED: IOHEXOL-350 75 ML VIAL IV ONE (22:57)
[2018-08-25] VITALS (7 sets, daily range): BP systolic 101–128; BP diastolic 59–77
[2018-08-25] MEDS ORDERED: LIDOCAINE HCL 2% VISCOUS 15 ML UDCUP ONE (00:49)
[2018-08-25] MEDS ORDERED: ONDANSETRON HCL 4 MG/2 ML VIAL ONE (00:57)
[2018-08-25] MEDS ORDERED: MORPHINE SULFATE 4 MG/1ML SYG ONE (00:57)
[2018-08-25] MEDS ORDERED: ONDANSETRON HCL 4 MG/2 ML VIAL IV PRN (01:00)
[2018-08-25] MEDS ORDERED: ACETAMINOPHEN 325 MG TAB PO PRN ×2 (01:00)
[2018-08-25] MEDS: SODIUM CHLORIDE 0.9% 1000ML 1,000 ML IV SCH ×3 (02:04→22:04)
[2018-08-25] MEDS: MORPHINE SULFATE 4 MG/1ML SYG IV PRN ×3 (05:15→23:38)
[2018-08-25] MEDS: FAMOTIDINE/PF 20 MG/2 ML VIAL IV SCH ×2 (09:31→22:03)
[2018-08-26 03:25] VITALS: BP 122/72
[2018-08-26 06:01] LABS: HEMATOCRIT 23.9 % (36-48); MEAN CORPUSCULAR HEMOGLOBIN 27.8 pg (27.0-33.0); MEAN CORPUSCULAR HGB CONC 32.1 g/dL (32.0-36.0); MEAN CORPUSCULAR VOLUME 86.5 fL (79-99); PLATELET COUNT (AUTO) 345 K/uL (130-400); RED BLOOD CELL COUNT(AUTO) 2.76 MIL/uL (4.00-5.50); RED CELL DISTRIBUTION WIDTH 26.6 % (11.0-15.5)
[2018-08-26 06:19] LABS: ALBUMIN 2.2 g/dL (3.5-5.0); BILIRUBIN,TOTAL 0.8 mg/dL (0.2-1.0); CREATININE 0.4 mg/dL (0.5-1.5); POTASSIUM 4.1 mmol/L (3.5-5.1); TOTAL PROTEIN, SERUM 6.6 g/dL (6.0-8.3)
[2018-08-26] MEDS: MORPHINE SULFATE 4 MG/1ML SYG IV PRN ×3 (06:38→17:54)
[2018-08-26 08:00] VITALS: BP 120/65
[2018-08-26] MEDS: SODIUM CHLORIDE 0.9% 1000ML 1,000 ML IV SCH ×3 (09:05→21:30)
[2018-08-26] MEDS: FAMOTIDINE/PF 20 MG/2 ML VIAL IV SCH ×2 (09:05→21:30)
[2018-08-26 12:00] VITALS: BP 111/78
[2018-08-26 16:00] VITALS: BP 117/71
[2018-08-26] MEDS ORDERED: ENOXAPARIN SODIUM 30 MG/0.3 ML SQ STA (16:57)
[2018-08-26 19:15] VITALS: BP 119/65
[2018-08-26 23:15] VITALS: BP 120/68
[2018-08-27] VITALS (7 sets, daily range): BP systolic 105–116; BP diastolic 57–86
[2018-08-27] MEDS: MORPHINE SULFATE 4 MG/1ML SYG IV PRN ×5 (00:15→23:14)
[2018-08-27 06:13] LABS: EOSINOPHILS % (AUTO) 0.6 % (0.0-8.0); HEMATOCRIT 22.6 % (36-48); LYMPHOCYTES % (AUTO) 15.6 % (21.0-51.0); MEAN CORPUSCULAR HEMOGLOBIN 27.8 pg (27.0-33.0); MEAN CORPUSCULAR HGB CONC 32.2 g/dL (32.0-36.0); MEAN CORPUSCULAR VOLUME 86.4 fL (79-99); MONOCYTES % (AUTO) 11.8 % (3.0-13.0); PLATELET COUNT (AUTO) 369 K/uL (130-400); RED BLOOD CELL COUNT(AUTO) 2.61 MIL/uL (4.00-5.50); RED CELL DISTRIBUTION WIDTH 25.9 % (11.0-15.5); WHITE BLOOD COUNT (AUTO) 4.5 K/uL (4.8-10.8)
[2018-08-27 06:18] LABS: CREATININE 0.4 mg/dL (0.5-1.5); POTASSIUM 3.8 mmol/L (3.5-5.1)
[2018-08-27] MEDS: SODIUM CHLORIDE 0.9% 1000ML 1,000 ML IV SCH ×2 (09:25→21:36)
[2018-08-27] MEDS: ENOXAPARIN SODIUM 40 MG/0.4 ML SYRINGE SQ SCH (09:25)
[2018-08-27] MEDS: FAMOTIDINE/PF 20 MG/2 ML VIAL IV SCH ×2 (12:11→21:36)
[2018-08-27 18:26] LABS: BILIRUBIN,URINE Negative (NEGATIVE); COLOR,URINE Yellow (YELLOW); GLUCOSE, URINE (UA) Negative (NEGATIVE); KETONES,URINE >=160 mg/dL (NEGATIVE); LEUKOCYTE ESTERASE ,URINE Negative (NEGATIVE); NITRATE,URINE Negative (NEGATIVE); OCCULT BLOOD,URINE Negative (NEGATIVE); PH,URINE 5.5 (5.0-8.0); PROTEIN,URINE Trace (NEGATIVE)
[2018-08-27 18:36] LABS: APPEARANCE,URINE SLIGHTLY CLOUDY (CLEAR)
[2018-08-27 19:30] LABS: BACTERIA,URINE Few /HPF (None Seen); MUCUS,URINE Few LPF (None Seen); RBC,URINE 0-1 /HPF (0-1); SQUAMOUS EPITHELIAL CELL,UR Few /HPF (0-2); WBC,URINE 0-1 /HPF (0-1)
[2018-08-28 04:15] VITALS: BP 106/64
[2018-08-28] MEDS: MORPHINE SULFATE 4 MG/1ML SYG IV PRN ×4 (05:39→22:13)
[2018-08-28 07:30] VITALS: BP 117/64
[2018-08-28] MEDS: FAMOTIDINE/PF 20 MG/2 ML VIAL IV SCH ×2 (09:30→20:17)
[2018-08-28] MEDS: ENOXAPARIN SODIUM 40 MG/0.4 ML SYRINGE SQ SCH (09:31)
[2018-08-28 11:00] VITALS: BP 122/75
[2018-08-28] MEDS: SODIUM CHLORIDE 0.9% 1000ML 1,000 ML IV SCH ×2 (12:00→18:53)
[2018-08-28 16:00] VITALS: BP 122/75
[2018-08-28 19:00] VITALS: BP 117/68
[2018-08-29] VITALS: BP 106/63
[2018-08-29 04:00] VITALS: BP 111/66
[2018-08-29] MEDS: SODIUM CHLORIDE 0.9% 1000ML 1,000 ML IV SCH (06:13)
[2018-08-29] MEDS: MORPHINE SULFATE 4 MG/1ML SYG IV PRN ×2 (06:14→11:34)
[2018-08-29 08:00] VITALS: BP 116/73
[2018-08-29] MEDS: FAMOTIDINE/PF 20 MG/2 ML VIAL IV SCH (09:16)
[2018-08-29] MEDS: ENOXAPARIN SODIUM 40 MG/0.4 ML SYRINGE SQ SCH (09:17)
[2018-08-29 12:00] VITALS: BP 126/73
[2018-08-29 16:00] VITALS: BP 111/71
[2018-08-29] MEDS ORDERED: FAMOTIDINE 20MG TAB 20 MG TAB PO SCH (21:00)
== END 2018-08-29 19:45 | disposition home or self-care (01) | DRG 375 ==
LOC: EDH 20:49 → OBSVTOIN 20:50 → EDHIP 20:50 → 3CH 08-25 00:55
PROVIDERS: ADMIT Internal Medicine; ATTEND Internal Medicine
PROC: 0D9670Z Drainage of Stomach with Drainage Device, Via Natural or Artificial Opening (ICD-10-PCS; principal; 2018-08-24)
DX: C18.9 Malignant neoplasm of colon, unspecified (principal); C78.7 Secondary malignant neoplasm of liver and intrahepatic bile duct; K43.3 Parastomal hernia with obstruction, without gangrene; C78.02 Secondary malignant neoplasm of left lung; C78.01 Secondary malignant neoplasm of right lung; Z93.3 Colostomy status; Z82.0 Family history of epilepsy and other diseases of the nervous system; Z82.3 Family history of stroke; Z82.49 Family history of ischemic heart disease and other diseases of the circulatory system; Z82.5 Family history of asthma and other chronic lower respiratory diseases; Z83.3 Family history of diabetes mellitus
CPT/HCPCS: 36415; 74021; 74177; 80048; 80053; 81001; 83690; 84484; 85025; 85027; 93005; A4218; G0378; J1650; J2270; J2405; J3490; J7030; Q9967

== ENCOUNTER 2018-09-05 01:12 | Inpatient (IN) | payer OTHER ==
[~2018-09-05] VITALS: Ht 157.5 cm; Wt 71.2 kg
[2018-09-05 01:39] LABS: APPEARANCE,URINE CLEAR (CLEAR); BILIRUBIN,URINE SMALL (NEGATIVE); COLOR,URINE YELLOW (YELLOW); GLUCOSE, URINE (UA) NEGATIVE (NEGATIVE); HCG,QUAL RESULT NEGATIVE (NEGATIVE); KETONES,URINE 40 mg/dL (NEGATIVE); LEUKOCYTE ESTERASE ,URINE TRACE (NEGATIVE); NITRATE,URINE NEGATIVE (NEGATIVE); OCCULT BLOOD,URINE NEGATIVE (NEGATIVE); PROTEIN,URINE TRACE (NEGATIVE); UROBILINOGEN,URINE >=8.0 mg/dL (0.2-1.0)
[2018-09-05 01:49] LABS: BACTERIA,URINE Few /HPF (None Seen); MUCUS,URINE Few LPF (None Seen); RBC,URINE 0-1 /HPF (0-1); SQUAMOUS EPITHELIAL CELL,UR 0-2 /HPF (0-2)
[2018-09-05 01:52] LABS: BASOPHILS % (AUTO) 0.8 % (0.0-5.0); EOSINOPHILS % (AUTO) 0.3 % (0.0-8.0); HEMATOCRIT 29.2 % (36-48); LYMPHOCYTES % (AUTO) 8.3 % (21.0-51.0); MEAN CORPUSCULAR HGB CONC 32.7 g/dL (32.0-36.0); MEAN CORPUSCULAR VOLUME 85.6 fL (79-99); MONOCYTES % (AUTO) 8.1 % (3.0-13.0); NEUTROPHILS % (AUTO) 82.5 % (40.0-77.0); PLATELET COUNT (AUTO) 410 K/uL (130-400); RED BLOOD CELL COUNT(AUTO) 3.41 MIL/uL (4.00-5.50); RED CELL DISTRIBUTION WIDTH 24.8 % (11.0-15.5); WHITE BLOOD COUNT (AUTO) 7.7 K/uL (4.8-10.8)
[2018-09-05 02:20] LABS: CREATININE 0.5 mg/dL (0.5-1.5); POTASSIUM 3.6 mmol/L (3.5-5.1)
[2018-09-05 02:24] LABS: ALBUMIN 2.5 g/dL (3.5-5.0); TOTAL PROTEIN, SERUM 7.5 g/dL (6.0-8.3)
[2018-09-05] MEDS ORDERED: SODIUM CHLORIDE 0.9% 1000ML 1,000 ML IV ONE ×2 (02:48→07:19)
[2018-09-05] MEDS ORDERED: ONDANSETRON HCL 4 MG/2 ML VIAL ONE ×3 (02:48→13:49)
[2018-09-05] MEDS ORDERED: MORPHINE SULFATE 4 MG/1ML SYG ONE ×4 (02:49→13:50)
[2018-09-05] MEDS ORDERED: IOHEXOL-350 75 ML VIAL IV ONE (03:28)
[2018-09-05] MEDS: SODIUM CHLORIDE 0.9% 1000ML 1,000 ML IV SCH ×3 (05:11→20:01)
[2018-09-05] MEDS ORDERED: ACETAMINOPHEN 325 MG TAB PO PRN (05:15)
[2018-09-05] MEDS ORDERED: ONDANSETRON HCL 4 MG/2 ML VIAL IV PRN (05:15)
[2018-09-05] MEDS ORDERED: LIDOCAINE HCL 2% VISCOUS 15 ML UDCUP ONE (05:25)
[2018-09-05] MEDS ORDERED: FAMOTIDINE/PF 20 MG/2 ML VIAL IV ONE (07:19)
[2018-09-05] MEDS: LACTULOSE 20 GM/30 ML UDCUP PO SCH ×2 (09:00→20:01)
[2018-09-05] MEDS: FAMOTIDINE/PF 20 MG/2 ML VIAL IV SCH ×2 (09:00→20:01)
[2018-09-05 16:00] VITALS: BP 123/85
[2018-09-05] MEDS: MORPHINE SULFATE 4 MG/1ML SYG IV PRN ×2 (16:56→21:49)
[2018-09-05] MEDS: METOCLOPRAMIDE 10 MG/2 ML VIAL IVP SCH (17:43)
[2018-09-05 20:00] VITALS: BP 118/73
[2018-09-05] MEDS: ACETAMINOPHEN 325 MG TAB PO PRN (20:05)
[2018-09-06] VITALS (7 sets, daily range): BP systolic 105–129; BP diastolic 56–80
[2018-09-06] MEDS ORDERED: MORP15T PO (00:42)
[2018-09-06] MEDS: METOCLOPRAMIDE 10 MG/2 ML VIAL IVP SCH ×4 (00:43→17:36)
[2018-09-06] MEDS: ACETAMINOPHEN 325 MG TAB PO PRN (00:44)
[2018-09-06] MEDS: MORPHINE SULFATE 4 MG/1ML SYG IV PRN ×5 (02:19→22:54)
[2018-09-06] MEDS: SODIUM CHLORIDE 0.9% 1000ML 1,000 ML IV SCH ×3 (02:20→19:32)
[2018-09-06 05:17] LABS: HEMATOCRIT 23.6 % (36-48); MEAN CORPUSCULAR HEMOGLOBIN 28.4 pg (27.0-33.0); MEAN CORPUSCULAR HGB CONC 32.6 g/dL (32.0-36.0); MEAN CORPUSCULAR VOLUME 87.1 fL (79-99); PLATELET COUNT (AUTO) 335 K/uL (130-400); RED BLOOD CELL COUNT(AUTO) 2.71 MIL/uL (4.00-5.50); RED CELL DISTRIBUTION WIDTH 25.9 % (11.0-15.5); WHITE BLOOD COUNT (AUTO) 4.9 K/uL (4.8-10.8)
[2018-09-06 05:36] LABS: ALBUMIN 1.9 g/dL (3.5-5.0); BILIRUBIN,TOTAL 0.7 mg/dL (0.2-1.0); CREATININE 0.4 mg/dL (0.5-1.5); MAGNESIUM 1.9 mg/dL (1.80-2.40); PHOSPHORUS 4.3 mg/dL (2.5-4.9); POTASSIUM 3.8 mmol/L (3.5-5.1); TOTAL PROTEIN, SERUM 5.8 g/dL (6.0-8.3)
[2018-09-06] MEDS: FAMOTIDINE/PF 20 MG/2 ML VIAL IV SCH ×2 (08:54→21:19)
[2018-09-06] MEDS ORDERED: LACTULOSE 20 GM/30 ML UDCUP PO PRN (09:00)
--- NOTE | 2018-09-06 15:28 | NUR ---
DC CM met with pt discussed dc plans. pt is independent prior to admission, lives at home with spouse. Denies any equipments/services. Pt feels safe to go back home, spouse able to assist with transportation and med rx as necessary. Pt is as self pay, [facility] assisting. Pt states she goes to [facility] for MD thompson/dhiraj and uses [facility] pharmacy for any rx. DC plan to home once stable. CM to cont to follow up. Addendum: 09/06/18 at 1530 by LILIANA ADAMS LVN CM Amended: Links added.
--- NOTE | 2018-09-06 15:35 | NUR ---
HOSPICE EDUCATION Sw contacted by CM, Dr Candelario states he has discussed hospice with pt as outpt, and wants hospice option discussed with pt again. Sw spoke to pt who states this is first she has heard of this, Dr Candelario did not discuss with her. Pt states she is currently taking chemo pills andwants to know if this is stopping. Encouraged pt to have this conversation with Dr Candelario. Did inform pt that hospice was an option even for self pay pts. Educated on [facility] hospice at home or hospice house. Cm informed of above
--- NOTE | 2018-09-06 15:45 | NUR ---
BRONSON YORK OF DR SORENSON CALLED AND WAS REQUESTING ME TO REMOVE THE TUBE AND START THE PATIENT ON CLEAR LIQUID DIET. I NOTIFIED HIM THAT DR LOWRY ALREADY CAME IN AND MADE THOSE CHANGES ON THE PATIENT TREATMENT REGIMEN.
--- NOTE | 2018-09-06 17:55 | NUR ---
PASSING GAS WITHOUT PROBLEM. NGT IS REMOVED AT THIS TIME AND THE PATIENT WAS MEDICATED FOR C/O PAIN.
[2018-09-07] VITALS: BP 133/87
[2018-09-07] MEDS: METOCLOPRAMIDE 10 MG/2 ML VIAL IVP SCH ×3 (00:45→09:43)
[2018-09-07] MEDS: ACETAMINOPHEN 325 MG TAB PO PRN ×2 (03:56→04:08)
[2018-09-07 04:00] VITALS: BP 111/63
[2018-09-07] MEDS: MORPHINE SULFATE 4 MG/1ML SYG IV PRN ×3 (04:07→15:29)
[2018-09-07] MEDS: SODIUM CHLORIDE 0.9% 1000ML 1,000 ML IV SCH (06:25)
[2018-09-07 08:00] VITALS: BP 117/68
[2018-09-07] MEDS ORDERED: CEFTRIAXONE SODIUM 1 GM IVP SCH (08:00)
[2018-09-07] MEDS: FAMOTIDINE/PF 20 MG/2 ML VIAL IV SCH (09:43)
[2018-09-07] MEDS ORDERED: CEPH-578 PO (10:08)
[2018-09-07 11:51] VITALS: BP 113/67
[2018-09-07 16:00] VITALS: BP_SYST 96; BP_DIAS 54; BP_DIAS 64
--- NOTE | 2018-09-07 17:54 | NUR ---
DISCHARGED HOME USING TEACH BACK TECHNIQUE RE; NEW MEDS, ANTIBIOTICS, FINISH ALL ANTIBIOTICS TO PREVENT A SUPER INFECTION, HOME MEDS, S/S TO WATCH FOR AND WHEN TO CALL 911 OR PRIMARY DOCTOR, PAIN MANAGEMENT WITH HOSPICE IF PAIN IS TOO SEVERE. AAOX3, IV OUT INTACT, NO DISTRESS AT THIS TIME. AT BEDSIDE. IF FEVERS GREATER THAN 100.5 CALL YOUR PRIMARY DOCTOR. FOLLOW UP WITH YOUR PRIMARY DOCTOR FLOWER MOCK IN 1-2 WEEKS. OR GO A WALK IN. FOLLOW UP WITH DR. LOWRY IN 1 WEEK CALL TO SET UP AN APPOINTMENT, PHONE; [phone] CALL HOSPICE SERVICES, YOU ALREADY HAVE INFORMATION GIVEN TO YOU. FOR PAIN MANAGEMENT. CALL 911 IF SHORTNESS OF BREATH OR CHEST PAIN DOES NOT RESOLVE WITH REST.
== END 2018-09-07 19:18 | disposition home or self-care (01) | DRG 389 ==
LOC: EDH 01:12 → EDHIP 01:13 → 3CH 16:13
PROVIDERS: ADMIT Internal Medicine; ATTEND Internal Medicine
PROC: 0D9670Z Drainage of Stomach with Drainage Device, Via Natural or Artificial Opening (ICD-10-PCS; principal; 2018-09-05)
DX: K56.609 Unspecified intestinal obstruction, unspecified as to partial versus complete obstruction (principal); N39.0 Urinary tract infection, site not specified; C19 Malignant neoplasm of rectosigmoid junction; C79.9 Secondary malignant neoplasm of unspecified site; E87.1 Hypo-osmolality and hyponatremia; Z51.5 Encounter for palliative care; D64.9 Anemia, unspecified; E78.5 Hyperlipidemia, unspecified; I10 Essential (primary) hypertension; K56.600 Partial intestinal obstruction, unspecified as to cause; Z93.3 Colostomy status; Z90.49 Acquired absence of other specified parts of digestive tract; Z83.3 Family history of diabetes mellitus; Z82.5 Family history of asthma and other chronic lower respiratory diseases; Z82.49 Family history of ischemic heart disease and other diseases of the circulatory system; Z82.3 Family history of stroke; Z82.0 Family history of epilepsy and other diseases of the nervous system
CPT/HCPCS: 36415; 74177; 80053; 81001; 81025; 83690; 83735; 84100; 84484; 85025; 85027; 93005; A4218; G0378; J0696; J2270; J2405; J2765; J3490; J7030; Q9967

== ENCOUNTER 2018-09-18 00:06 | Inpatient (IN) | payer OTHER ==
[~2018-09-18] VITALS: Ht 154.9 cm; Wt 70.8 kg
[~2018-09-18 00:06] MED LIST changes: -ACET1TAB12 PO; +CEPH-578 PO; +MORP15T PO
[2018-09-18 01:37] LABS: BASOPHILS % (AUTO) 0.8 % (0.0-5.0); EOSINOPHILS % (AUTO) 0.4 % (0.0-8.0); HEMATOCRIT 30.8 % (36-48); LYMPHOCYTES % (AUTO) 9.1 % (21.0-51.0); MEAN CORPUSCULAR HEMOGLOBIN 27.9 pg (27.0-33.0); MEAN CORPUSCULAR HGB CONC 31.7 g/dL (32.0-36.0); MEAN CORPUSCULAR VOLUME 87.9 fL (79-99); MONOCYTES % (AUTO) 6.8 % (3.0-13.0); NEUTROPHILS % (AUTO) 82.9 % (40.0-77.0); NUCLEATED RED BLOOD CELLS 0.1 % (0.0-0.19); PLATELET COUNT (AUTO) 436 K/uL (130-400); RED CELL DISTRIBUTION WIDTH 24.5 % (11.0-15.5); WHITE BLOOD COUNT (AUTO) 7.1 K/uL (4.8-10.8)
[2018-09-18 01:47] LABS: CREATININE 0.4 mg/dL (0.5-1.5); POTASSIUM 4.1 mmol/L (3.5-5.1)
[2018-09-18] MEDS ORDERED: FENTANYL CITRATE PF 50 MCG/1 ML 2ML VIAL ONE (01:48)
[2018-09-18 01:51] LABS: ALBUMIN 2.4 g/dL (3.5-5.0); BILIRUBIN,TOTAL 0.9 mg/dL (0.2-1.0)
[2018-09-18] MEDS ORDERED: ACETAMINOPHEN 325 MG TAB PO PRN ×2 (03:45)
[2018-09-18] MEDS ORDERED: MORPHINE SULFATE 2 MG/ML 1ML SYG ONE ×3 (03:47→14:19)
[2018-09-18] MEDS ORDERED: ONDANSETRON HCL 4 MG/2 ML VIAL ONE (03:47)
[2018-09-18] MEDS ORDERED: ZOSYN 3.375GM+NS 50ML 50 ML IV ONE ×2 (07:51→15:28)
[2018-09-18] MEDS ORDERED: ENOXAPARIN SODIUM 30 MG/0.3 ML SQ ONE (07:51)
[2018-09-18] MEDS ORDERED: FAMOTIDINE/PF 20 MG/2 ML VIAL IV ONE (07:52)
[2018-09-18] MEDS ORDERED: ENOXAPARIN SODIUM 30 MG/0.3 ML SQ SCH (09:00)
[2018-09-18] MEDS ORDERED: CEPHALEXIN 500 MG CAPSULE PO SCH (09:00)
--- NOTE | 2018-09-18 10:07 | NUR ---
BURTON Earl familiar with pt, self pay, pt of Dr Candelario. Pt lives with and 2 kids ages 20 and 10. Pt independent, no DME or in home care services.Plan is home at pa Addendum: 09/18/18 at 1009 by JOEY BRIGGS Amended: Links added.
[2018-09-18 14:27] LABS: APPEARANCE,URINE Clear (CLEAR); BILIRUBIN,URINE Moderate (NEGATIVE); COLOR,URINE Dark Yellow (YELLOW); GLUCOSE, URINE (UA) Negative (NEGATIVE); KETONES,URINE >=160 mg/dL (NEGATIVE); LEUKOCYTE ESTERASE ,URINE Trace (NEGATIVE); NITRATE,URINE Negative (NEGATIVE); OCCULT BLOOD,URINE Negative (NEGATIVE); PH,URINE 5.5 (5.0-8.0); PROTEIN,URINE Trace mg/dL (NEGATIVE)
[2018-09-18 15:08] LABS: BACTERIA,URINE None Seen /HPF (None Seen); MUCUS,URINE Moderate LPF (None Seen); WBC,URINE 0-1 /HPF (0-1)
[2018-09-18 17:42] VITALS: BP 112/71
[2018-09-18 19:00] VITALS: BP 94/58
[2018-09-18 19:12] VITALS: BP 99/58
[2018-09-18] MEDS: ZOSYN 3.375GM+NS 50ML 50 ML IV SCH (21:02)
[2018-09-18] MEDS: MORPHINE SULFATE 2 MG/ML 1ML SYG IV PRN (21:02)
[2018-09-18] MEDS: SODIUM CHLORIDE 0.9% 1000ML 1,000 ML IV SCH (21:02)
[2018-09-18] MEDS: FAMOTIDINE/PF 20 MG/2 ML VIAL IV SCH (23:46)
[2018-09-19 00:18] VITALS: BP 113/64
[2018-09-19] MEDS: MORPHINE SULFATE 2 MG/ML 1ML SYG IV PRN ×3 (01:24→22:23)
[2018-09-19 04:00] VITALS: BP 112/62
[2018-09-19] MEDS: ZOSYN 3.375GM+NS 50ML 50 ML IV SCH ×3 (05:04→22:22)
[2018-09-19 05:58] LABS: BASOPHILS % (AUTO) 0.5 % (0.0-5.0); EOSINOPHILS % (AUTO) 0.5 % (0.0-8.0); HEMATOCRIT 27.1 % (36-48); MEAN CORPUSCULAR HEMOGLOBIN 28.7 pg (27.0-33.0); MEAN CORPUSCULAR HGB CONC 32.3 g/dL (32.0-36.0); MEAN CORPUSCULAR VOLUME 88.8 fL (79-99); MONOCYTES % (AUTO) 10.1 % (3.0-13.0); NEUTROPHILS % (AUTO) 76.9 % (40.0-77.0); PLATELET COUNT (AUTO) 345 K/uL (130-400); RED BLOOD CELL COUNT(AUTO) 3.05 MIL/uL (4.00-5.50); RED CELL DISTRIBUTION WIDTH 24.6 % (11.0-15.5); WHITE BLOOD COUNT (AUTO) 5.3 K/uL (4.8-10.8)
[2018-09-19 06:05] LABS: CREATININE 0.5 mg/dL (0.5-1.5); POTASSIUM 3.6 mmol/L (3.5-5.1)
[2018-09-19 07:00] VITALS: BP 107/62
[2018-09-19] MEDS: FAMOTIDINE/PF 20 MG/2 ML VIAL IV SCH ×2 (09:02→22:22)
[2018-09-19] MEDS: KETOROLAC TROMETHAMINE 30MG/ML IV PRN ×2 (09:12→17:37)
[2018-09-19 11:00] VITALS: BP 98/57
[2018-09-19 16:00] VITALS: BP 117/74
[2018-09-19] MEDS: SODIUM CHLORIDE 0.9% 1000ML 1,000 ML IV SCH ×2 (16:00→22:38)
[2018-09-19] MEDS: ONDANSETRON HCL 4 MG/2 ML VIAL IV PRN (17:37)
[2018-09-19 19:00] VITALS: BP 104/72
[2018-09-20] VITALS: BP 106/67
[2018-09-20] MEDS: KETOROLAC TROMETHAMINE 30MG/ML IV PRN ×2 (03:27→09:02)
[2018-09-20 04:00] VITALS: BP 107/61
[2018-09-20 05:30] LABS: HEMATOCRIT 27.4 % (36-48); MEAN CORPUSCULAR HGB CONC 32.1 g/dL (32.0-36.0); MEAN CORPUSCULAR VOLUME 90.4 fL (79-99); PLATELET COUNT (AUTO) 374 K/uL (130-400); RED BLOOD CELL COUNT(AUTO) 3.03 MIL/uL (4.00-5.50); RED CELL DISTRIBUTION WIDTH 24.6 % (11.0-15.5); WHITE BLOOD COUNT (AUTO) 5.4 K/uL (4.8-10.8)
[2018-09-20] MEDS: SODIUM CHLORIDE 0.9% 1000ML 1,000 ML IV SCH (05:31)
[2018-09-20] MEDS: ZOSYN 3.375GM+NS 50ML 50 ML IV SCH ×3 (05:39→22:23)
[2018-09-20 05:46] LABS: CREATININE 0.5 mg/dL (0.5-1.5)
[2018-09-20 05:58] LABS: POTASSIUM 2.8 mmol/L (3.5-5.1)
--- NOTE | 2018-09-20 06:00 | NUR ---
Low Glucose and potassium Lab staff called to report that random glucose result was 50 mg/dl and potassium of 2.8. Pt. conscious and responsive, not in distress. On-call hospitalist, Dr. Sanchez made aware with an order to follow protocol. Patient was then placed on hypoglycemia and hypokalemia protocol. Monitored and cared for. Endorsed accordingly to AM shift.
[2018-09-20] MEDS ORDERED: DEXTROSE 50%-WATER 50 ML DISP.SYRIN IV ONE (06:03)
[2018-09-20] MEDS ORDERED: GLUCAGON 1MG KIT 1 MG ML IM PRN (06:15)
[2018-09-20] MEDS ORDERED: DEXTROSE 50%-WATER 50 ML DISP.SYRIN IV PRN (06:15)
[2018-09-20 07:00] VITALS: BP 122/70
[2018-09-20] MEDS: FAMOTIDINE/PF 20 MG/2 ML VIAL IV SCH ×2 (09:01→22:23)
[2018-09-20] MEDS: LIDOCAINE HCL-MPF 1% 2ML VIAL IVP PRN ×2 (09:02→12:57)
[2018-09-20] MEDS: ONDANSETRON HCL 4 MG/2 ML VIAL IV PRN (09:02)
[2018-09-20] MEDS: POTASSIUM CHLORIDE 20MEQ/100ML 100 ML IV PRN ×2 (09:03→12:57)
[2018-09-20] MEDS: D5W-1/2 NS/20MEQ KCL 1,000 ML IV SCH ×2 (10:30→17:26)
[2018-09-20 11:00] VITALS: BP 114/67
[2018-09-20] MEDS: MORPHINE SULFATE 2 MG/ML 1ML SYG IV PRN ×3 (14:02→23:04)
--- NOTE | 2018-09-20 15:00 | NUR ---
CM NOTES/CHART REVIEW. WAS AT NURSING STATION TODAY WHEN DR. DORANTES WAS ROUNDING. PT W GIRM PROGNOSIS, WILLHAVE RECURRNET BOWEL PROBLEMS. PRIMARY RN JASMIN STATES PT IS DRINKING A LOT OF WATER....SO NGT OUTPUT IS HIGH-(FALSE HIGH.) JAYNA ORDERS FOR NGT CLAMP AND OBSERVE FOR ABDOMINAL PAIN. UNCLAMP IF ABDOMINAL PAIN COMES BACK
[2018-09-20 16:00] VITALS: BP 114/67
[2018-09-20 19:00] VITALS: BP 98/58
--- NOTE | 2018-09-20 20:10 | NUR ---
NG TUBE NG TUBE CLAMPED AT APPROX 1200 HOURS. TOTAL VOLUME FOR THIS SHIFT AT THIS TIME IS 800ML OF CLEAR/YELLOW FLUID.
[2018-09-21] VITALS (7 sets, daily range): BP systolic 110–121; BP diastolic 66–83
[2018-09-21] MEDS: D5W-1/2 NS/20MEQ KCL 1,000 ML IV SCH ×3 (01:32→15:52)
[2018-09-21] MEDS: KETOROLAC TROMETHAMINE 30MG/ML IV PRN ×2 (02:08→12:27)
[2018-09-21 05:06] LABS: HEMATOCRIT 27.4 % (36-48); MEAN CORPUSCULAR HEMOGLOBIN 28.6 pg (27.0-33.0); MEAN CORPUSCULAR HGB CONC 31.9 g/dL (32.0-36.0); MEAN CORPUSCULAR VOLUME 89.4 fL (79-99); PLATELET COUNT (AUTO) 329 K/uL (130-400); RED BLOOD CELL COUNT(AUTO) 3.06 MIL/uL (4.00-5.50); RED CELL DISTRIBUTION WIDTH 24.3 % (11.0-15.5); WHITE BLOOD COUNT (AUTO) 4.5 K/uL (4.8-10.8)
[2018-09-21 05:14] LABS: CREATININE 0.5 mg/dL (0.5-1.5); POTASSIUM 3.3 mmol/L (3.5-5.1)
[2018-09-21] MEDS: ZOSYN 3.375GM+NS 50ML 50 ML IV SCH ×3 (05:19→21:39)
[2018-09-21] MEDS: MORPHINE SULFATE 2 MG/ML 1ML SYG IV PRN ×3 (07:00→21:40)
[2018-09-21] MEDS: FAMOTIDINE/PF 20 MG/2 ML VIAL IV SCH ×2 (10:53→21:39)
[2018-09-21] MEDS: ONDANSETRON HCL 4 MG/2 ML VIAL IV PRN (11:08)
[2018-09-22] MEDS: D5W-1/2 NS/20MEQ KCL 1,000 ML IV SCH ×4 (01:49→20:38)
[2018-09-22] MEDS: MORPHINE SULFATE 2 MG/ML 1ML SYG IV PRN ×4 (01:50→20:37)
[2018-09-22 04:02] VITALS: BP 109/72
[2018-09-22] MEDS: ZOSYN 3.375GM+NS 50ML 50 ML IV SCH ×3 (05:37→20:36)
[2018-09-22 05:39] LABS: HEMATOCRIT 29.6 % (36-48); MEAN CORPUSCULAR HEMOGLOBIN 28.1 pg (27.0-33.0); MEAN CORPUSCULAR HGB CONC 30.2 g/dL (32.0-36.0); PLATELET COUNT (AUTO) 73 K/uL (130-400); RED BLOOD CELL COUNT(AUTO) 3.18 MIL/uL (4.00-5.50); RED CELL DISTRIBUTION WIDTH 24.5 % (11.0-15.5); WHITE BLOOD COUNT (AUTO) 4.4 K/uL (4.8-10.8)
[2018-09-22 05:47] LABS: CREATININE 0.5 mg/dL (0.5-1.5); POTASSIUM 3.4 mmol/L (3.5-5.1)
[2018-09-22] MEDS: ONDANSETRON HCL 4 MG/2 ML VIAL IV PRN ×2 (05:53→20:37)
[2018-09-22 08:00] VITALS: BP 100/70
[2018-09-22] MEDS: FAMOTIDINE/PF 20 MG/2 ML VIAL IV SCH ×2 (08:15→20:36)
[2018-09-22] MEDS: KETOROLAC TROMETHAMINE 30MG/ML IV PRN (08:15)
[2018-09-22 12:00] VITALS: BP 125/69
[2018-09-22] MEDS ORDERED: TRAMADOL HCL 50 MG TABLET PO PRN (12:30)
[2018-09-22 16:00] VITALS: BP 113/75
[2018-09-22 21:20] VITALS: BP 122/79
[2018-09-23 00:31] VITALS: BP 122/78
[2018-09-23] MEDS: MORPHINE SULFATE 2 MG/ML 1ML SYG IV PRN ×2 (00:50→05:12)
[2018-09-23 03:32] VITALS: BP 119/78
[2018-09-23] MEDS: ZOSYN 3.375GM+NS 50ML 50 ML IV SCH (05:11)
[2018-09-23] MEDS: ONDANSETRON HCL 4 MG/2 ML VIAL IV PRN (05:12)
[2018-09-23] MEDS: D5W-1/2 NS/20MEQ KCL 1,000 ML IV SCH (05:12)
[2018-09-23 05:53] LABS: EOSINOPHILS % (AUTO) 1.8 % (0.0-8.0); HEMATOCRIT 28.5 % (36-48); LYMPHOCYTES % (AUTO) 19.8 % (21.0-51.0); MEAN CORPUSCULAR HEMOGLOBIN 28.3 pg (27.0-33.0); MEAN CORPUSCULAR HGB CONC 31.6 g/dL (32.0-36.0); MEAN CORPUSCULAR VOLUME 89.3 fL (79-99); MONOCYTES % (AUTO) 10.3 % (3.0-13.0); NEUTROPHILS % (AUTO) 67.1 % (40.0-77.0); PLATELET COUNT (AUTO) 294 K/uL (130-400); RED BLOOD CELL COUNT(AUTO) 3.19 MIL/uL (4.00-5.50); WHITE BLOOD COUNT (AUTO) 4.6 K/uL (4.8-10.8)
[2018-09-23 06:11] LABS: CREATININE 0.5 mg/dL (0.5-1.5); POTASSIUM 3.8 mmol/L (3.5-5.1)
[2018-09-23 08:15] VITALS: BP 112/72
[2018-09-23] MEDS: FAMOTIDINE/PF 20 MG/2 ML VIAL IV SCH (09:24)
[2018-09-23] MEDS: KETOROLAC TROMETHAMINE 30MG/ML IV PRN (09:25)
--- NOTE | 2018-09-23 11:48 | NUR ---
PT D/C HOME Pt safe and stable for d/c at this time, requested to have lunch before leaving, IV removed, tip intact, no complication noted, pt verbalized understanding of d/c instruction, accompanied with family members, taken down in w/c off the floor.
== END 2018-09-23 12:30 | disposition home or self-care (01) | DRG 389 ==
LOC: EDH 00:06 → EDHIP 00:07 → 3BH 17:05
PROVIDERS: ADMIT Internal Medicine; ATTEND Internal Medicine
PROC: 0D9670Z Drainage of Stomach with Drainage Device, Via Natural or Artificial Opening (ICD-10-PCS; principal; 2018-09-19)
DX: K56.609 Unspecified intestinal obstruction, unspecified as to partial versus complete obstruction (principal); C78.7 Secondary malignant neoplasm of liver and intrahepatic bile duct; K43.5 Parastomal hernia without obstruction or gangrene; R91.8 Other nonspecific abnormal finding of lung field; R16.0 Hepatomegaly, not elsewhere classified; E16.2 Hypoglycemia, unspecified; E87.6 Hypokalemia; Z93.3 Colostomy status; Z90.711 Acquired absence of uterus with remaining cervical stump; Z90.49 Acquired absence of other specified parts of digestive tract; Z85.038 Personal history of other malignant neoplasm of large intestine; Z83.3 Family history of diabetes mellitus; Z82.5 Family history of asthma and other chronic lower respiratory diseases; Z82.49 Family history of ischemic heart disease and other diseases of the circulatory system; Z82.3 Family history of stroke; Z82.0 Family history of epilepsy and other diseases of the nervous system
CPT/HCPCS: 36415; 74021; 74176; 80048; 80053; 81001; 82150; 82948; 83690; 84132; 85025; 85027; 93005; G0378; J1650; J1885; J2405; J2543; J3010; J3480; J3490; J7070

== ENCOUNTER 2018-10-01 11:00 | Inpatient (IN) | payer OTHER ==
[~2018-10-01] VITALS: Ht 152.4 cm; Wt 69.9 kg
[2018-10-01 11:28] LABS: BASOPHILS % (AUTO) 0.6 % (0.0-5.0); EOSINOPHILS % (AUTO) 0.1 % (0.0-8.0); HEMATOCRIT 32.3 % (36-48); MEAN CORPUSCULAR HEMOGLOBIN 29.7 pg (27.0-33.0); MEAN CORPUSCULAR HGB CONC 32.9 g/dL (32.0-36.0); MEAN CORPUSCULAR VOLUME 90.2 fL (79-99); MONOCYTES % (AUTO) 6.2 % (3.0-13.0); NEUTROPHILS % (AUTO) 83.1 % (40.0-77.0); PLATELET COUNT (AUTO) 312 K/uL (130-400); RED BLOOD CELL COUNT(AUTO) 3.58 MIL/uL (4.00-5.50); WHITE BLOOD COUNT (AUTO) 9.2 K/uL (4.8-10.8)
[2018-10-01] MEDS ORDERED: MORPHINE SULFATE 4 MG/1ML SYG ONE (11:30)
[2018-10-01] MEDS ORDERED: PROMETHAZINE HCL 25 MG/ML 1ML AMPULE IM ONE (11:30)
[2018-10-01 11:35] LABS: CREATININE 0.5 mg/dL (0.5-1.5)
[2018-10-01 11:40] LABS: ALBUMIN 2.3 g/dL (3.5-5.0); BILIRUBIN,TOTAL 0.7 mg/dL (0.2-1.0); TOTAL PROTEIN, SERUM 7.7 g/dL (6.0-8.3)
[2018-10-01] MEDS ORDERED: IOHEXOL-350 75 ML VIAL IV ONE (12:11)
[2018-10-01] MEDS ORDERED: POTASSIUM CHLORIDE 10% ELIXIR 20 MEQ/15 ML UDCUP ONE (13:17)
[2018-10-01] MEDS ORDERED: MAGNESIUM 2GM PREMIX 50ML 50 ML IV ONE (13:17)
[2018-10-01] MEDS ORDERED: HYDROMORPHONE 1 MG/1 ML AMP ONE ×2 (15:46→20:38)
[2018-10-01] MEDS ORDERED: LACTULOSE 20 GM/30 ML UDCUP PO PRN (16:00)
[2018-10-01] MEDS ORDERED: HYDRALAZINE HCL 20 MG/ML VIAL IV PRN (16:00)
[2018-10-01] MEDS ORDERED: ACETAMINOPHEN 325 MG TAB PO PRN (16:00)
[2018-10-01] MEDS: SODIUM CHLORIDE 0.9% 1000ML 1,000 ML IV SCH (16:00)
[2018-10-01] MEDS ORDERED: HYDROMORPHONE 1 MG/1 ML AMP IVP ONE (17:25)
[2018-10-01] MEDS ORDERED: FAMOTIDINE/PF 20 MG/2 ML VIAL IV ONE (20:23)
[2018-10-01] MEDS ORDERED: ONDANSETRON HCL 4 MG/2 ML VIAL ONE (20:38)
[2018-10-01] MEDS: FAMOTIDINE/PF 20 MG/2 ML VIAL IV SCH (21:00)
--- NOTE | 2018-10-01 23:37 | NUR ---
Admission note Admitted to floor per stretcher. Looking weak ,but responsive. Placed in bed comfortably. AOx3. VS checked and recorded. Assessment done. Plan of care initiated. Monitored and watched for any unusualities. Cared for and needs attended.
[2018-10-02] VITALS (7 sets, daily range): BP systolic 99–121; BP diastolic 60–76
[2018-10-02] MEDS: ONDANSETRON HCL 4 MG/2 ML VIAL IV PRN (01:43)
[2018-10-02] MEDS: HYDROCODONE/ACETAMINOPHEN 5/325 MG TAB PO PRN (01:44)
[2018-10-02] MEDS ORDERED: METO10TA3 PO (02:20)
[2018-10-02] MEDS ORDERED: DEXA4TAB PO (02:20)
[2018-10-02] MEDS: MORPHINE SULFATE 4 MG/1ML SYG IV PRN ×4 (05:11→20:40)
[2018-10-02] MEDS: FAMOTIDINE/PF 20 MG/2 ML VIAL IV SCH ×2 (08:28→20:40)
[2018-10-02] MEDS: ENOXAPARIN SODIUM 40 MG/0.4 ML SYRINGE SQ SCH (08:29)
[2018-10-02] MEDS: SODIUM CHLORIDE 0.9% 1000ML 1,000 ML IV SCH ×4 (08:30→22:25)
[2018-10-02] MEDS ORDERED: DOCUSATE SODIUM 100 MG CAP PO PRN (10:30)
[2018-10-02] MEDS ORDERED: METOCLOPRAMIDE 10 MG TABLET PO PRN (10:30)
[2018-10-02 10:56] LABS: BASOPHILS % (AUTO) 0.4 % (0.0-5.0); EOSINOPHILS % (AUTO) 0.2 % (0.0-8.0); HEMATOCRIT 27.5 % (36-48); LYMPHOCYTES % (AUTO) 10.7 % (21.0-51.0); MEAN CORPUSCULAR HEMOGLOBIN 29.5 pg (27.0-33.0); MEAN CORPUSCULAR HGB CONC 32.3 g/dL (32.0-36.0); MEAN CORPUSCULAR VOLUME 91.2 fL (79-99); MONOCYTES % (AUTO) 8.3 % (3.0-13.0); NEUTROPHILS % (AUTO) 80.4 % (40.0-77.0); NUCLEATED RED BLOOD CELLS 0.1 % (0.0-0.19); PLATELET COUNT (AUTO) 189 K/uL (130-400); RED BLOOD CELL COUNT(AUTO) 3.01 MIL/uL (4.00-5.50); RED CELL DISTRIBUTION WIDTH 22.8 % (11.0-15.5); WHITE BLOOD COUNT (AUTO) 7.2 K/uL (4.8-10.8)
[2018-10-02 11:02] LABS: CREATININE 0.5 mg/dL (0.5-1.5); POTASSIUM 3.8 mmol/L (3.5-5.1)
[2018-10-02] MEDS: DEXAMETHASONE 4 MG TAB PO SCH (20:38)
[2018-10-03] MEDS: MORPHINE SULFATE 4 MG/1ML SYG IV PRN ×6 (02:16→20:35)
[2018-10-03 04:22] VITALS: BP 99/73
[2018-10-03] MEDS: SODIUM CHLORIDE 0.9% 1000ML 1,000 ML IV SCH ×2 (06:53→16:38)
[2018-10-03 07:44] VITALS: BP 110/58
[2018-10-03] MEDS: ENOXAPARIN SODIUM 40 MG/0.4 ML SYRINGE SQ SCH (09:00)
[2018-10-03] MEDS: FAMOTIDINE/PF 20 MG/2 ML VIAL IV SCH ×2 (10:53→20:34)
[2018-10-03] MEDS: DEXAMETHASONE 4 MG TAB PO SCH ×2 (10:53→20:36)
[2018-10-03 11:14] VITALS: BP 100/69
--- NOTE | 2018-10-03 12:51 | NUR ---
SS VISIT Sw familiar with pt from previous admissions and previous referrals to discuss hospice with pt. Pt has always refused to discuss or consider stopping chemo. Sw met with pt and sister and father at bedside. Pt states she was open to hearing about hospice now. Sw educated on hospice criteria, hospice services and [facility] hospice since she is self pay. Sw emphasized that pt would no longer treating cancer aggressively, would not be coming to hospital, and hospice would do everything they could to keep pt comfortable at home until she passed. Discussed code status with pt and family. Pt not sure she is ready for this either. Family asked that I meet with them and at 2 and explained all this again with him present. Sw met separately with sister, who states home environment and support not good. unemployed, 20 yro son and do nothing to help pt at home. FAmily has dog in home that really bothers pt and family choses dog over pt's needs everytime. Sister and father live in [facility] and travel here weekly to see pt, but can not stay. Sister works and has 2 college students. Sister asked that SW stress pt's needs for comfort and support at home to .
[2018-10-03 16:00] VITALS: BP 116/74
--- NOTE | 2018-10-03 17:57 | NUR ---
[facility]/ DNR Sw met with pt and , sister and friend also present for discussion. SW educated everyone on hospice criteria, services, and code status. 1) Pt wanting clarification that she could not continue her chemo pill (Lonsurf) and be on hospice. Sw contacted Dr Francis Boyce who verified that pt could not continue medication. 2) Pt is agreeable to hospice. Pt made aware that next step in locating a hospice that will aceept her as rubi. Pt voiced understanding. 3) DNR/DNI - pt informed family that she did not want either and was agreeable to signing OOHDNR. 4) Sw contaced [facility], [facility], [facility] and [facility]. [facility], [facility] and [facility] have not beds at this time. [facility] stated they do not accept undocumented pts. SW to contact more hospices in am
[2018-10-03 19:00] VITALS: BP 132/89
[2018-10-04] VITALS: BP 113/72
[2018-10-04] MEDS: SODIUM CHLORIDE 0.9% 1000ML 1,000 ML IV SCH (01:40)
[2018-10-04] MEDS: MORPHINE SULFATE 4 MG/1ML SYG IV PRN ×5 (01:41→22:25)
[2018-10-04 04:00] VITALS: BP 112/78
[2018-10-04 08:07] VITALS: BP 107/64
[2018-10-04] MEDS: DEXAMETHASONE 4 MG TAB PO SCH ×2 (09:48→22:25)
[2018-10-04] MEDS: FAMOTIDINE/PF 20 MG/2 ML VIAL IV SCH ×2 (09:48→22:25)
[2018-10-04] MEDS: ENOXAPARIN SODIUM 40 MG/0.4 ML SYRINGE SQ SCH (09:51)
[2018-10-04] MEDS: HYDROCODONE/ACETAMINOPHEN 5/325 MG TAB PO PRN ×2 (09:59→18:37)
--- NOTE | 2018-10-04 10:07 | NUR ---
[facility] spoke to Thomas, and answered all questions regarding pt and [facility] bed request. [facility] considering accepting pt. [facility] here now discussing services with pt and will stress importance of calling hospice first before revoking to come to hospital. Waiting on decision
[2018-10-04 11:52] VITALS: BP 108/76
--- NOTE | 2018-10-04 14:18 | NUR ---
[facility] HAS ACCEPTED PT [facility] SW recd call from Thomas, they have accepted pt for rubi. DCP is for tomorrow. Thomas to contact and make arrangements for DME to be delivered to home. Thomas to notify us when pt is ready to be discharged. Cristo to call report to [facility] at that time SIRISHA de los santos
--- NOTE | 2018-10-04 14:40 | NUR ---
Sw notified pt and sister of acceptance. Pt extremely happy and grateful for this. Pt undersanding that dcp is for tomorrow. Gold nurse also aware
[2018-10-04 16:20] VITALS: BP 115/76
[2018-10-04 20:05] VITALS: BP 107/68
[2018-10-04] MEDS: ONDANSETRON HCL 4 MG/2 ML VIAL IV PRN (22:29)
[2018-10-05 00:49] VITALS: BP 125/84
[2018-10-05 04:15] VITALS: BP 112/80
[2018-10-05] MEDS: MORPHINE SULFATE 4 MG/1ML SYG IV PRN ×2 (04:22→10:06)
[2018-10-05] MEDS: ONDANSETRON HCL 4 MG/2 ML VIAL IV PRN (04:28)
[2018-10-05 04:43] LABS: BASOPHILS % (AUTO) 0.2 % (0.0-5.0); HEMATOCRIT 28.2 % (36-48); MEAN CORPUSCULAR HEMOGLOBIN 29.4 pg (27.0-33.0); MEAN CORPUSCULAR HGB CONC 32.4 g/dL (32.0-36.0); MEAN CORPUSCULAR VOLUME 90.8 fL (79-99); MONOCYTES % (AUTO) 6.1 % (3.0-13.0); NEUTROPHILS % (AUTO) 83.7 % (40.0-77.0); NUCLEATED RED BLOOD CELLS 0.1 % (0.0-0.19); PLATELET COUNT (AUTO) 198 K/uL (130-400); RED CELL DISTRIBUTION WIDTH 21.6 % (11.0-15.5); WHITE BLOOD COUNT (AUTO) 6.9 K/uL (4.8-10.8)
[2018-10-05 04:52] LABS: CREATININE 0.4 mg/dL (0.5-1.5); POTASSIUM 3.6 mmol/L (3.5-5.1)
--- NOTE | 2018-10-05 07:50 | NUR ---
NOTE AAOX3. DENIES PAIN AT THIS TIME BUT REPORTS SOME DISCOMFORT AROUND STOMA. NO N/V EATING BREAKFAST. BBS CLEAR, NO COUGH OR PHLEGM. HAS METASTATIC COLON CANCER AND THE PLAN IS FOR HER TO GO HOME WITH HOSPICE. WAITING FOR [facility]. REPORTS SOME WHITE PATCHES IN HER MOUTH AND TONGUE. SHE APPEARS TO HAVE THRUSH, WILL MENTION TO PRIMARY DOCTOR WHEN HE OR SHE ROUNDS. COLOSTOMY TO LLQ WITH BULGING AROUND STOMA. CT SHOWS HERNIA AROUND STOMA AND SHE SAYS IT HAS BEEN PRESENT FOR SOME TIME NOW AND SHE IS NOT CANDIDATE FOR SURGERY. SHE HAS ABOUT 3+ PITTING EDEMA TO BLE. WILL MEDICATE PRN PAIN WHEN NEEDED.
[2018-10-05 08:00] VITALS: BP 111/72
--- NOTE | 2018-10-05 09:50 | NUR ---
DCP: Per Thomas at [facility], DME to be delivered at 10 to home. [facility] to notify us when pt can dc. Pt to transport by private car. Nurse to call report to [facility] [phone]
[2018-10-05] MEDS: FAMOTIDINE/PF 20 MG/2 ML VIAL IV SCH (10:05)
[2018-10-05] MEDS: DEXAMETHASONE 4 MG TAB PO SCH (10:05)
[2018-10-05] MEDS: ENOXAPARIN SODIUM 40 MG/0.4 ML SYRINGE SQ SCH (10:06)
--- NOTE | 2018-10-05 11:54 | NUR ---
PT READY FOR DC SW met with pt and completed OOHDNR. Copy faxed to [facility]. Per pt, DME at the house and family to drive pt home. nurse Armin informed pt ready for dc. Nurse to call report to [facility]
--- NOTE | 2018-10-05 11:56 | NUR ---
NOTE [employer] STOPPED BY AND SPOKE TO PATIENT. OUT OF HOSPITAL DNR FORMS HAVE BEEN SIGNED. SHE WILL BE RECEIVING HOSPICE [facility] BY [facility]. ALL EQUIPMENT HAS BEEN DELIVERED TO HER HOUSE AND SHE WILL BE READY TO LEAVE ONCE ORDER RECEIVED FROM PCP AND FAMILY IS HERE TO TRANSPORT HER. SHE WAS MEDICATED ONCE FOR PAIN EARLIER THIS AM AND IS NOT HAVING PAIN AT THIS MOMENT. SHE DID HAVE OUTPUT FROM COLOSTOMY YESTERDAY AND NOT MUCH TODAY.
[2018-10-05 12:00] VITALS: BP 113/84
[2018-10-05 16:00] VITALS: BP 115/73
--- NOTE | 2018-10-05 17:50 | NUR ---
DISCHARGE PATIENT GIVEN DISCHARGE INSTRUCTIONS AND EDUCATION, INCLUDING SIDE EFFECTS ON NEW HOSPICE. PATIENT VERBALIZED UNDERSTANDING OF ALL EDUCATION GIVEN VIA TEACH BACK. NO QUESTIONS OR CONCERNS VOICED AT THIS TIME. IV DISCONTINUED, CATHETER INTACT. NO SIGNS OF DISTRESS NOTED UPON DISCHARGE. PATIENT LEFT VIA WHEELCHAIR WITH FAMILY AT SIDE. ALL BELONGINGS TAKEN WITH. Addendum: 10/05/18 at 1816 by BRITTNEY CHAMPION RN RN Amended: Links added.
== END 2018-10-05 18:08 | disposition hospice, home (50) | DRG 948 ==
LOC: EDH 11:00 → EDHIP 11:01 → 4AH 22:38
PROVIDERS: ADMIT Internal Medicine; ATTEND Internal Medicine
DX: G89.3 Neoplasm related pain (acute) (chronic) (principal); C18.9 Malignant neoplasm of colon, unspecified; C78.7 Secondary malignant neoplasm of liver and intrahepatic bile duct; Z93.3 Colostomy status; E87.6 Hypokalemia; K43.5 Parastomal hernia without obstruction or gangrene; Z51.5 Encounter for palliative care; Z66 Do not resuscitate; Z82.0 Family history of epilepsy and other diseases of the nervous system; Z82.3 Family history of stroke; Z82.49 Family history of ischemic heart disease and other diseases of the circulatory system; Z83.3 Family history of diabetes mellitus
CPT/HCPCS: 36415; 74177; 80048; 80053; 83690; 85025; 93005; G0378; J1170; J1650; J2270; J2405; J2550; J3475; J3490; J7030; J8540; Q9967